=== PATIENT | female | born 1980 | race Caucasian/White ===

== ENCOUNTER 2021-10-28 12:20 | Outpatient (REF) | payer OTHER, SELFPAY ==
[2021-10-28 14:02] LABS: MANUAL DIFF FLAG NO
[2021-10-28 14:10] LABS: Basophils Percent Auto 0.4 % (0-2); Eosinophils Percent Auto 0.5 % (0-4); Hematocrit 40.5 % (37.0-47.0); Hemoglobin 13.1 g/dl (12.0-16.0); Imm Gran Abs Auto 0.02 X10*3/uL (0.00-0.03); Imm Gran Pct Auto 0.3 % (0.0-0.4); Lymphocytes Absolute Auto 2.4 X10*3/uL (1.2-4.9); Lymphocytes Percent Auto 31.9 % (20-40); Mean Corpuscular HGB Conc 32.3 g/dl (31.0-35.0); Mean Corpuscular Hemoglobin 31.4 pg (27.0-33.0); Mean Corpuscular Volume 97.1 fL (80.0-98.0); Mean Platelet Volume 9.6 fL (9.4-12.3); Monocytes Absolute Auto 0.5 X10*3/uL (0.1-1.2); Monocytes Percent Auto 6.6 % (2-11); Neutrophils Absolute Auto 4.5 x10*3/uL (2.0-8.3); Neutrophils Percent Auto 60.3 % (45-73); Platelet Count 266 X10*3/uL (160-400); Red Blood Count 4.17 X10*6/uL (4.20-5.50); Red Cell Distribution Width 13.2 % (11.0-16.0); White Blood Count 7.4 X10*3/uL (4.8-10.8)
[2021-10-28 14:24] LABS: Alanine Aminotransferase 13 U/L (0-31); Anion Gap 11 (12-20); Aspartate Amino Transferase 17 U/L (5-31); Blood Urea Nitrogen 11 mg/dL (9-16); Calcium 9.6 mg/dL (8.4-10.2); Carbon Dioxide 26 mmol/L (22-29); Chloride 107 mmol/L (96-108); Cholesterol 175 mg/dL; Estimated Glomerular Filt Rate > 60; Glucose Fasting 96 mg/dL (60-99); HDL Cholesterol 67 mg/dL; LDL Cholesterol Calculated 97 mg/dl; Sodium 140 mmol/L (135-145); Triglycerides 59 mg/dL
[2021-10-28 14:38] LABS: TSH reflex Free T4 1.03 uIU/mL (0.32-4.0); Vitamin D 25-OH Total 28.6 ng/mL (>30)
== END 2021-10-28 12:21 | disposition home or self-care (01) ==
LOC: HO.HMGCLDS 12:20
PROVIDERS: PCP Internal Medicine; Visit Provider Internal Medicine
DX: Z00.01 Encounter for general adult medical examination with abnormal findings (principal)
CPT/HCPCS: 36415; 80048; 80061; 82306; 84443; 84450; 84460; 85025

== ENCOUNTER 2021-12-20 10:31 | Outpatient (REF) | payer OTHER, SELFPAY ==
--- NOTE | ~2021-12-20 | MM_ITS ---
EXAMINATION: MM SCREENING DIGITAL BREAST TOMOSYNTHESIS, BILATERAL CLINICAL INFORMATION: Screening. Asymptomatic. Prior pzh-op-qfqcg mammography currently unavailable. Family history breast cancer, mother. The lifetime risk of breast cancer based on the Tyrer-Cuzick Model is 26%. COMPARISON: None. TECHNIQUE: Digital mammography is performed in craniocaudal and mediolateral oblique views along with computer-aided detection (CAD). Digital breast tomosynthesis is performed in implant-displaced craniocaudal and implant-displaced mediolateral oblique views along with computer-aided detection (CAD). Synthesized 2D images are generated from the tomosynthesis. FINDINGS: The breasts are heterogeneously dense, which may obscure small masses (ACR BI-RADS breast composition Category c). There are bilateral implants. Implant contours are smooth. There is fine fibronodular parenchymal pattern. No significant mass or architectural abnormality. No abnormal calcifications. The axilla and skin contours are unremarkable. MM/MM tomosynthesis screen imp BI IMPRESSION: No mammographic evidence of malignancy. ASSESSMENT: BI-RADS 1: Negative RECOMMENDATION: 1. Routine annual mammography screening. 2. Radiology department staff will attempt to retrieve prior dkb-nx-rcpah mammography to allow for comparison in an addendum report. 3. The lifetime risk of breast cancer based on the Tyrer-Cuzick Model is 26%. Additional annual adjunct screening with breast MRI may be of benefit in women with a risk score of 20% or greater. This patient's information was entered into a reminder system with a target due date for their next mammogram.
== END 2021-12-20 10:32 | disposition home or self-care (01) ==
LOC: HO.MAMMO 10:31
PROVIDERS: Visit Provider Internal Medicine
DX: Z12.31 Encounter for screening mammogram for malignant neoplasm of breast (principal)
CPT/HCPCS: 77063; 77067

== ENCOUNTER 2022-02-11 08:12 | Outpatient (REF) | payer OTHER, SELFPAY ==
[2022-02-11 10:10] LABS: Hematocrit 39.8 % (37.0-47.0); Hemoglobin 13.3 g/dl (12.0-16.0); Mean Corpuscular HGB Conc 33.4 g/dl (31.0-35.0); Mean Corpuscular Volume 95.7 fL (80.0-98.0); Mean Platelet Volume 9.1 fL (9.4-12.3); Platelet Count 232 X10*3/uL (160-400); Red Blood Count 4.16 X10*6/uL (4.20-5.50); Red Cell Distribution Width 12.5 % (11.0-16.0); White Blood Count 10.7 X10*3/uL (4.8-10.8)
[2022-02-11 10:57] LABS: TSH reflex Free T4 0.77 uIU/mL (0.32-4.0)
[2022-02-11 14:32] LABS: CT PCR NOT DETECTED (Not Detect.); NG PCR NOT DETECTED (Not Detect.)
[2022-02-12 11:01] LABS: BV Int Neg Control Negative (Negative); BV Int Pos Control Positive (Positive)
[2022-02-14 13:02] LABS: HPV mRNA E6/E7 rflx Not Detected (Not Detected)
== END 2022-02-11 08:13 | disposition home or self-care (01) ==
LOC: HO.LAB 08:12
PROVIDERS: PCP Internal Medicine; Visit Provider Advanced Practice Midwife
DX: Z01.411 Encounter for gynecological examination (general) (routine) with abnormal findings (principal); Z11.51 Encounter for screening for human papillomavirus (HPV); N93.9 Abnormal uterine and vaginal bleeding, unspecified; Z20.2 Contact with and (suspected) exposure to infections with a predominantly sexual mode of transmission
CPT/HCPCS: 36415; 84443; 85027; 87480; 87491; 87510; 87591; 87624; 87660; 88142

== ENCOUNTER 2022-10-21 12:23 | Outpatient (REF) | payer OTHER, SELFPAY ==
--- NOTE | ~2022-10-21 | XR_ITS ---
EXAMINATION: XR LUMBOSACRAL SPINE CLINICAL INFORMATION: Reason for Exam VITAMIN D LEVEL. EXTENSIVE BACK HISTORY COMPARISON: None TECHNIQUE: 5 views of the lumbar spine FINDINGS: Transitional anatomy with a broad-based left L5 transverse process pseudoarticulating with the sacrum. Status post L3 through L5 posterior spinal fusion with interbody disc spacers. No evidence of hardware fracture or complication. Vertebral body heights are maintained. Alignment is maintained. No fusion hardware and overlying bowel gas somewhat limits evaluation for pars defects, though none is appreciated with certainty. Mild degenerative disc disease at L5-S1 with loss of disc space height. Paravertebral soft tissues are unremarkable. XR/XR lumbar spine 4V min IMPRESSION: * Status post L3 through L5 posterior spinal fusion with interbody disc spacers. No evidence of hardware fracture or complication. * Mild spondylosis of the lumbar spine, as above detailed. * Transitional lumbosacral anatomy with a broad-based left L5 transverse process pseudoarticulating with the sacrum, which can be a source of pain.
[2022-10-21 13:55] LABS: MANUAL DIFF FLAG NO
[2022-10-21 14:02] LABS: Basophils Percent Auto 0.8 % (0-2); Eosinophils Absolute Auto 0.1 X10*3/uL (0.0-0.4); Eosinophils Percent Auto 2.3 % (0-4); Hematocrit 38.9 % (37.0-47.0); Hemoglobin 12.4 g/dl (12.0-16.0); Imm Gran Abs Auto 0.01 X10*3/uL (0.00-0.03); Imm Gran Pct Auto 0.2 % (0.0-0.4); Lymphocytes Percent Auto 42.7 % (20-40); Mean Corpuscular HGB Conc 31.9 g/dl (31.0-35.0); Mean Corpuscular Hemoglobin 30.7 pg (27.0-33.0); Mean Corpuscular Volume 96.3 fL (80.0-98.0); Mean Platelet Volume 9.1 fL (9.4-12.3); Monocytes Absolute Auto 0.3 X10*3/uL (0.1-1.2); Monocytes Percent Auto 6.5 % (2-11); Neutrophils Absolute Auto 2.3 x10*3/uL (2.0-8.3); Neutrophils Percent Auto 47.5 % (45-73); Platelet Count 248 X10*3/uL (160-400); Red Blood Count 4.04 X10*6/uL (4.20-5.50); Red Cell Distribution Width 12.9 % (11.0-16.0); White Blood Count 4.8 X10*3/uL (4.8-10.8)
[2022-10-21 14:37] LABS: Erythrocyte Sedimentation Rate 13 MM/HR (0-20)
[2022-10-21 15:39] LABS: Free T4 (Free Thyroxine) 1.23 ng/dL (0.71-1.85); Thyroid Stimulating Hormone 1.26 uIU/mL (0.32-4.0); Vitamin D 25-OH Total 22.2 ng/mL (>30)
[2022-10-21 15:43] LABS: Alanine Aminotransferase 15 U/L (0-31); Albumin Level 4.4 g/dL (3.5-5.0); Alkaline Phosphatase 51 U/L (39-117); Anion Gap 14 (12-20); Aspartate Amino Transferase 19 U/L (5-31); Bilirubin Total 0.6 mg/dL (0.0-1.0); Blood Urea Nitrogen 15 mg/dL (9-16); C Reactive Protein < 0.04 mg/dL (< or = 0.50); Calcium 9.2 mg/dL (8.4-10.2); Carbon Dioxide 24 mmol/L (22-29); Chloride 107 mmol/L (96-108); Cholesterol 170 mg/dL; Estimated Glomerular Filt Rate > 60; Glucose Fasting 97 mg/dL (60-99); HDL Cholesterol 61 mg/dL; LDL Cholesterol Calculated 97 mg/dl; Potassium 3.8 mmol/L (3.3-5.1); Sodium 141 mmol/L (135-145); Total Protein 7.1 g/dL (6.5-8.0); Triglycerides 62 mg/dL
[2022-10-22 11:13] LABS: Folate 14.2 ng/mL (> or = 4.0); Vitamin B12 381 pg/mL (200-900)
== END 2022-10-21 12:24 | disposition home or self-care (01) ==
LOC: HO.HMGCX 12:23
PROVIDERS: PCP Internal Medicine; Visit Provider Internal Medicine
DX: D64.9 Anemia, unspecified (principal); R53.83 Other fatigue; M54.9 Dorsalgia, unspecified
CPT/HCPCS: 36415; 72110; 80053; 80061; 82306; 82607; 82746; 84439; 84443; 85025; 85652; 86140

== ENCOUNTER 2023-03-18 15:30 | Outpatient (REF) | payer OTHER, SELFPAY ==
--- NOTE | ~2023-03-18 | XR_ITS ---
EXAMINATION: XR LUMBOSACRAL SPINE CLINICAL INFORMATION: Low back pain. COMPARISON: 10/21/2022 TECHNIQUE: Three views of the lumbosacral spine. FINDINGS: There are 5 nonrib-bearing lumbar vertebra. Patient status post pedicle screw and lisa fixation. Hardware appears intact. Disc spaces are seen at the L3-L4 and L4-L5 disc space levels. There is some mild narrowing of the L5-S1 disc space. No spondylolisthesis. No acute fracture identified. Sacroiliac joints appear unremarkable. XR/XR lumbar spine 2-3V IMPRESSION: Stable appearance status post previous surgery L3 through L5 without evidence of hardware failure.
== END 2023-03-18 15:31 | disposition home or self-care (01) ==
LOC: HO.HMGCX 15:30
PROVIDERS: PCP Internal Medicine; Visit Provider Internal Medicine
DX: M54.9 Dorsalgia, unspecified (principal)
CPT/HCPCS: 72100

== ENCOUNTER 2023-04-09 07:59 | Outpatient (REF) | payer OTHER, SELFPAY ==
--- NOTE | ~2023-04-09 | MM_ITS ---
EXAMINATION: MM SCREENING DIGITAL BREAST TOMOSYNTHESIS, BILATERAL CLINICAL INFORMATION: Screening. Asymptomatic. The lifetime risk of breast cancer based on the Tyrer-Cuzick Model is 25.8%. COMPARISON: Mammography: This study is compared with the prior mammogram from 2021. There are no other mammograms for comparison. TECHNIQUE: Digital mammography is performed in craniocaudal and mediolateral oblique views along with computer-aided detection (CAD). Digital breast tomosynthesis is performed in implant-displaced craniocaudal and implant-displaced mediolateral oblique views along with computer-aided detection (CAD). Synthesized 2D images are generated from the tomosynthesis. FINDINGS: The breasts are heterogeneously dense, which may obscure small masses (ACR BI-RADS breast composition Category c). There are bilateral, mammographically intact, subpectoral, saline breast implants. There are no significant masses, abnormal calcifications, or other abnormalities. MM/MM tomosynthesis screen imp BI IMPRESSION: There are no significant changes from prior study. ASSESSMENT: BI-RADS BI-RADS 1 - Negative RECOMMENDATION: Routine annual mammography screening. 1 year F/U This patient's information was entered into a reminder system with a target due date for their next mammogram.
== END 2023-04-09 08:00 | disposition home or self-care (01) ==
LOC: HO.MAMMO 07:59
PROVIDERS: PCP Internal Medicine; Visit Provider Internal Medicine
DX: Z12.31 Encounter for screening mammogram for malignant neoplasm of breast (principal)
CPT/HCPCS: 77063; 77067

== ENCOUNTER → 2023-04-09 08:00 | Outpatient (BNV) | payer OTHER, SELFPAY | PROVIDERS: PCP Internal Medicine; Visit Provider Radiology Diagnostic Radiology | DX: Z12.31 Encounter for screening mammogram for malignant neoplasm of breast (principal) | CPT/HCPCS: 77063; 77067 ==

== ENCOUNTER 2023-05-13 11:18 | Outpatient (REF) | payer OTHER, SELFPAY ==
--- NOTE | ~2023-05-13 | MR_ITS ---
EXAMINATION: MR LUMBAR SPINE WITHOUT AND WITH CONTRAST CLINICAL INFORMATION: 42-year-old with history of previous lumbar fusion, with post laminectomy syndrome. Low back pain of 2 months duration, right side. Left sciatica. COMPARISON: 03/18/2023 x-rays. TECHNIQUE: MRI of the lumbar spine was obtained using routine sequences with and without contrast. Intravenous contrast: Gadavist 5.5 mL. FINDINGS: Coronal Alignment: Trace lower lumbar levocurvature, stable in appearance. Sagittal Alignment: Moderate hyperlordosis centered at L3-L4. No spondylolisthesis or significant retrolisthesis. Lumbosacral Junction: Transitional lumbosacral anatomy with lowest lumbar-like segment labeled as L5. Vertebral Bodies: Vertebral body heights are well-maintained. Disc Spaces and Endplates: Transitional intervertebral disc at L5-S1. Status post interbody fusions at L3-L4 and L4-L5 with hardware artifact in the intervertebral disc spaces at these levels. Posterior instrumented hardware fusion construct in place spanning the L5 levels bilaterally with metallic hardware artifact. Minimal disc desiccation at L2-L3 without significant disc space height loss. Spinal Canal: No abnormal developmental findings. Bone Marrow: Mixed type I and type II degenerative marrow signal changes seen along the endplates at L4-L5 with minor type II marrow signal changes along the endplates at L3-L4. No suspicious marrow replacing process or other bone marrow edema. Conus Medullaris: Terminates at L1-L2. Morphology and signal is normal. No abnormal enhancement. Intradural Nerve Roots: Within normal limits. No abnormal intradural enhancement. L5-S1: Transitional level showing posterolateral disc osteophyte complex, right more than left with a small right posterolateral annular fissure. L5 pedicle screw artifact partially obscures the neural foramina, right more than left. Suspect moderate right-sided neural foraminal stenosis with disc osteophyte complex contacting the exiting right L5 nerve root sleeve. No canal stenosis. L4-L5: Chronic postlaminectomy changes noted on the right for canal decompression with no evidence for recurrent canal stenosis. Partially obscured facet joints and posterior elements bilaterally related to metallic artifact. Some degree of facet hypertrophic changes seen bilaterally. Posterolateral disc osteophyte complex noted bilaterally with minor bony neural foraminal narrowing bilaterally. L3-L4: Chronic postlaminectomy changes noted consistent with canal decompression without recurrent canal stenosis. No significant neural foraminal stenosis. L2-L3: Central to left paracentral disc herniation noted with indentation of the ventral thecal sac centrally and minimally asymmetric to the left with slight narrowing of the left subarticular zone without definite neural impingement. There is mild associated central spinal canal narrowing. There is [id number]-fs-[id number] facet arthropathy, right more than left, partially obscured by L3 pedicle screw artifact. No significant neural foraminal stenosis. L1-L2: Normal annular contour. No facet arthrosis, canal or neuroforaminal stenosis. T12-L1: Normal annular contour. No facet arthrosis, canal or neuroforaminal stenosis. Paravertebral and Included Extraspinal Soft Tissues: There are some edematous changes in the soft tissues posterior to the L5-S1 level which may reflect denervation atrophy of the adjacent paraspinal musculature. Otherwise, the paravertebral soft tissues appear grossly unremarkable. There is a subcentimeter probable cortical cyst in the lateral cortex of the mid to upper pole of the left kidney which is not visualized on the associated axial T2-weighted images. If clinically warranted, this can be confirmed sonographically. Note also that on the sagittal images, there is a partially imaged cystic structure corresponding to the region of the left adnexa measuring at least 3 cm. Statistically, this is most likely a physiologic left ovarian cyst but is not completely visualized. MR/MR lumbar spine wo/w con IMPRESSION: 1. Status post anterior and posterior fusion at the L3-L4 and L4-L5 levels with postoperative changes as discussed above with no evidence for recurrent canal stenosis and no significant neural foraminal stenosis. 2. Discogenic degenerative changes at L2-L3 with a central to left paracentral disc herniation with mild narrowing of the left subarticular zone and mild central canal stenosis without neural impingement and [id number] facet arthropathy at this level without significant neural foraminal stenosis. 3. Posterolateral disc osteophyte complex at L5-S1, right more than left, with a tiny right posterolateral annular fissure, with moderate right-sided neural foraminal stenosis, with disc osteophyte complex contacting the exiting right L5 nerve root sleeve. 4. Probable physiologic left ovarian cyst, which is only partially imaged and a probable small simple cyst in the lateral cortex left kidney also incompletely imaged. If clinically warranted, these can be further assessed sonographically.
[2023-05-13] MEDS: gadobutroL 7.5 ML VIAL IVPUSH (12:09)
== END 2023-05-13 11:19 | disposition home or self-care (01) ==
LOC: HO.MRI 11:18
PROVIDERS: PCP Internal Medicine; Visit Provider Internal Medicine
DX: M54.50 Low back pain, unspecified (principal); M43.26 Fusion of spine, lumbar region
CPT/HCPCS: 72158; A9585

== ENCOUNTER 2023-06-23 08:28 | Outpatient (AMB) | payer OTHER, SELFPAY ==
[2023-06-23 08:34] VITALS: BP 90/56; BMI 22.1
--- NOTE | 2023-06-23 08:34 | MHC.OFFVIS ---
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 No complaints. Recent back MRI showed partial imaging of an ovarian cyst Last Pap/HPV was negative in 03/04 Last screen Mammogram was BI-RADS 1 in 04/04, [facility] lifetime breast cancer risk = 25.8% [facility] Medical History Lumbar radicular syndrome Hx of supraventricular tachycardia ADD (attention deficit disorder) Surgical History Hx of section Hx of breast augmentation History of lumbosacral spine surgery History of cardiac radiofrequency ablation (RFA) Family History Maternal Aunt Mental health disorder Family/Other Mental health disorder Paternal Grandfather Goiter Paternal Aunt Breast cancer Father Non-Hodgkin lymphoma Hodgkin lymphoma Mother Breast cancer Sister Cervical cancer Social History Housing: House Alcohol intake: current Alcohol intake frequency: holidays/special occasions only Patient Tobacco Use Status: Current everyday Tobacco user Cigarettes Per Day: 5 service: No Current occupational status: employed 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[employer] Sexually active: No Female Reproductive History Menstrual Date of last menstrual period: 05/23/23 control method: none Total pregnancies: 4 Full term: 1 Number of Living Children: 1 Ab induced: 3 Date of last pap smear: 02/11/22 (neg pap and hpv) Date of Mammogram: 04/09/23 (Birad 1) Review of Systems Const All systems reviewed & are unremarkable except as noted in HPI and below Card Reports as per HPI Resp Reports as per HPI GI Reports as per HPI and Reports no additional complaints Reports as per HPI Physical Exam Vital Signs: BMI result Body Mass Index 22.1 Const General: cooperative, healthy appearing and comfortable Chest Chest palpation & inspection: normal inspection of the chest and normal palpation of entire chest wall Breast/axilla inspection: normal inspection of the breasts and normal inspection of the axillae Breast/axilla palpation: normal palpation of the breasts, normal palpation of the axillae and no axillary lymphadenopathy Resp Effort & Inspection: normal respiratory effort Auscultation: clear to auscultation bilaterally Percussion: percussion normal Cardio Palpation: normal PMI Rate: regular rate Rhythm: regular rhythm Heart sounds: no murmurs and no rubs Peripheral pulses: Peripheral pulses 2+ throughout GI Inspection: Yes normal to inspection Palpation (GI): Soft to palpation, nontender, no guarding, not rigid and No hepatosplenomegaly present Percussion: Yes normal to percussion Auscultation: normal bowel sounds Rectal Exam - Female: deferred General: Yes bladder normal to palpation External Female Exam: No lesion Speculum Exam - Vagina: normal appearance of the vagina, normal palpation, normal vaginal discharge and not erythematous Speculum Exam - Cervix: normal appearance of the cervix and normal palpation Bimanual exam- vagina & uterus: normal bimanual exam, normal palpation, uterine size normal, bladder normal to palpation, consistency normal and normal palpation Bimanual Exam- Adnexa, other: normal adnexae, no masses and no tenderness Assessment & Plan Assessment & Plan (1) Encounter for well woman exam: Code(s): Z01.419 - Encounter for gynecological examination (general) (routine) without abnormal findings Plan: Cotesting not indicated this. Instructions given the patient to schedule her next screening Mammogram in 04/01. Counseled the patient about the recommended dietary allowance of 1000 mg of Calcium & 600 IU of vitamin D. The patient was instructed to perform monthly self-breast exams and to schedule an annual exam in a year; All questions answered and the patient verbalized understanding. Instructed the patient to schedule annual exam in a year (2) Increased risk of breast cancer: Code(s): Z91.89 - Other specified personal risk factors, not elsewhere classified Plan: Discussed with the patient her increased risk for Breast ca. The lifetime risk of breast cancer based on the Tyrer-Cuzick Model is 25.8 % Recommended Intensification of breast Cancer screening with annual MRI breast in addition to annual mammogram and MRI alternating every 6 months. Mammogram done recently , Breast MRI ordered Will refer to Dr Valentin for possible Genetic Ca counseling and possible testing, in addition to counseling regarding Chemoprevention strategies All questions answered, the patient verbalized understanding and agreed with the plan (3) Ovarian cyst: Code(s): N83.209 - Unspecified ovarian cyst, unspecified side Plan: Will order pelvic ultrasound, instructions given the patient to schedule a follow-up ultrasound appointment Orders: Orders MR breast BI wo/w con Today Z80.3 - Family history of malignant neoplasm of breast US pelvic and transvaginal Today N83.209 - Unspecified ovarian cyst, unspecified side Referrals General Surgery Referral Z91.89 - Other specified personal risk factors, not elsewhere classified Coding Level of Care Code Est Pt Prev Care 40-64y(32077) Diagnoses Encounter for well woman exam Z01.419 Increased risk of breast cancer Z91.89 Ovarian cyst N83.209
== END 2023-06-23 08:59 | disposition home or self-care (01) ==
PROVIDERS: PCP Internal Medicine; Visit Provider Obstetrics & Gynecology
DX: Z01.419 Encounter for gynecological examination (general) (routine) without abnormal findings (principal); Z91.89 Other specified personal risk factors, not elsewhere classified; N83.209 Unspecified ovarian cyst, unspecified side
CPT/HCPCS: 99396

== ENCOUNTER → 2023-06-23 08:28 | Outpatient (BNVA) | payer OTHER, SELFPAY | PROVIDERS: PCP Internal Medicine; Visit Provider Obstetrics & Gynecology | DX: Z01.419 Encounter for gynecological examination (general) (routine) without abnormal findings (principal); N83.209 Unspecified ovarian cyst, unspecified side; Z91.89 Other specified personal risk factors, not elsewhere classified; Z80.3 Family history of malignant neoplasm of breast | CPT/HCPCS: 99396 ==

== ENCOUNTER 2023-07-21 11:00 | Outpatient (REF) | payer OTHER, SELFPAY ==
--- NOTE | ~2023-07-21 | US_ITS ---
EXAMINATION: US PELVIS CLINICAL INFORMATION: Left ovarian cyst. COMPARISON: MRI lumbar spine 05/13/2023. TECHNIQUE: Ultrasound of the pelvis is performed using both transabdominal and transvaginal transducers along with Doppler. Transvaginal imaging is performed due to inadequate visualization transabdominally. FINDINGS: Uterus: The uterus is retroverted and measures 8.2 x 4.8 x 5.4 cm. The double wall endometrial thickness is 3 mm. The uterus is smooth in contour and has normal myometrial echogenicity. No visible fibroid. Prominent parametrial vessels are seen. Adnexa: Both ovaries are visualized. There is normal color flow to the adnexa. There is no ovarian torsion. There is no pelvic ascites or fluid collection. Right ovary measures 3.9 x 3.5 x 3.2 cm. Volume 23 mL. Physiologic simple cysts measuring 2.6 and 1.7 cm. No follow-up imaging is recommended. Left ovary measures 3.9 x 2.0 x 1.3 cm. Volume 5 mL. US/US pelvic and transvaginal IMPRESSION: The left ovary appears normal. The cyst seen on recent MRI was likely physiologic and has resolved. Prominent parametrial vessels may reflect ovarian vein reflux.
== END 2023-07-21 11:01 | disposition home or self-care (01) ==
LOC: HO.US 11:00
PROVIDERS: PCP Internal Medicine; Visit Provider Advanced Practice Midwife
DX: N83.209 Unspecified ovarian cyst, unspecified side (principal)
CPT/HCPCS: 76830; 76856

== ENCOUNTER 2023-09-16 08:55 | Outpatient (AMB) | payer OTHER, SELFPAY ==
--- NOTE | 2023-09-16 09:00 | MHC.OFFVIS ---
Intake Vital Signs 09/16/23 09:11 Height 5 ft 6 in Weight 135 lb 12.876 oz BMI 21.9 BP 100/70 Blood Pressure Location Lt brachial Intake Visit Reasons: High risk, breast consult, genetic testing Intake Note: Patient is seen in office for high risk breast cancer consult & possible genetic testing. 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 Her most recent mammogram of 7 05/02/2023 revealed no significant changes from her prior mammogram however her Kathy Gibson remaining lifetime risk of breast cancer was calculated at 25.8 % placing her at high risk for breast cancer. She denies any previous history of breast problems but has had bilateral breast implants approximately 20 years ago (saline implants). She has had no significant breast symptoms following the surgery. Her family history is significant for her mother developing breast cancer in her 40s. In addition a paternal aunt developed breast cancer was found to be BRCA positive. No other family members have tested positive for BRCA. She is with 3 ABs. She is scheduled for an MRI on 10/06/2023 but is concerned about positioning during the MRI due to previous lumbar back surgery. She denies any current breast symptoms. She presents today for genetic testing. [facility] Medical History Lumbar radicular syndrome Hx of supraventricular tachycardia ADD (attention deficit disorder) Surgical History Hx of section Hx of breast augmentation History of lumbosacral spine surgery History of cardiac radiofrequency ablation (RFA) Family History Maternal Aunt Mental health disorder Family/Other Mental health disorder Paternal Grandfather Goiter Paternal Aunt Breast cancer Father Non-Hodgkin lymphoma Hodgkin lymphoma Mother Breast cancer Sister Cervical cancer Social History Housing: House Alcohol intake: current Alcohol intake frequency: holidays/special occasions only Patient Tobacco Use Status: Current everyday Tobacco user Cigarettes Per Day: 5 service: No Current occupational status: employed 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 Reproductive History Menstrual 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: 17 Date of last menstrual period: 09/02/23 Total pregnancies: 3 Number of Living Children: 1 Ab spontaneous: 2 Review of Systems Const All systems reviewed & are unremarkable except as noted in HPI and below Physical Exam Const General: cooperative and no acute distress Nutritional Appearance: well nourished Orientation/consciousness: patient oriented x3 Limitations: no limitations HEENT Head: Yes normocephalic and Yes atraumatic Ears: hearing grossly normal bilaterally Chest Other: Bilateral breast implants with no capsule capsule fibrosis or calcification palpable Left breast: No skin change, no nipple retraction, no nipple discharge, no palpable mass, no enlarged lymph nodes. Right breast: No skin change, no nipple retraction, no nipple discharge, no palpable mass, no enlarged lymph nodes Resp Effort & Inspection: normal respiratory effort, no audible wheezes, no cough and no respiratory distress Cardio Jugular venous distension: no JVD GI Inspection: Yes normal to inspection Skin Other: Warm, dry, no rash Neuro General: patient oriented x3 Extrem General: Yes no clubbing, cyanosis or edema Assessment & Plan Assessment & Plan (1) Increased risk of breast cancer: Code(s): Z91.89 - Other specified personal risk factors, not elsewhere classified (2) Family history of breast cancer: Code(s): Z80.3 - Family history of malignant neoplasm of breast (3) Family history of BRCA gene mutation: Code(s): Z84.81 - Family history of carrier of genetic disease Plan 42-year-old female patient presenting with a strong family history of breast cancer as well as a family history of BRCA positive gene mutations and a paternal aunt. She has no prior history of breast problems but has undergone previous bilateral breast implants. She denies any current breast symptoms. Examination today reveals no suspicious findings in either breast. Her Tyrer-Cuzick remaining lifetime risk of breast cancer was calculated at 25.8 % placing her at high risk for breast cancer. A breast MRI has been ordered by Dr. Jara for later this month. She will undergo genetic testing today and understands the risks and benefits. She will follow-up in 6 weeks to review the results. She is welcome to call sooner for any questions or concerns. Coding Level of Care Code New Pt Level 4 (73582) Diagnoses Increased risk of breast cancer Z91.89 Family history of breast cancer Z80.3 Family history of BRCA gene mutation Z84.81
[2023-09-16 09:11] VITALS: BP 100/70; BMI 21.9
== END 2023-09-16 09:27 | disposition home or self-care (01) ==
PROVIDERS: PCP Internal Medicine; Visit Provider Surgery
DX: Z80.3 Family history of malignant neoplasm of breast (principal); Z84.81 Family history of carrier of genetic disease; Z91.89 Other specified personal risk factors, not elsewhere classified
CPT/HCPCS: 99204

== ENCOUNTER → 2023-09-16 08:55 | Outpatient (BNVA) | payer OTHER, SELFPAY | PROVIDERS: PCP Internal Medicine; Visit Provider Surgery | DX: Z91.89 Other specified personal risk factors, not elsewhere classified (principal); Z80.3 Family history of malignant neoplasm of breast; Z84.81 Family history of carrier of genetic disease | CPT/HCPCS: 99202 ==

== ENCOUNTER 2023-12-23 11:37 | Outpatient (REF) | payer OTHER, SELFPAY ==
[2023-12-23 13:09] LABS: MANUAL DIFF FLAG NO
[2023-12-23 13:27] LABS: Basophils Percent Auto 0.5 % (0-2); Eosinophils Absolute Auto 0.1 X10*3/uL (0.0-0.4); Eosinophils Percent Auto 2.1 % (0-4); Hematocrit 37.6 % (37.0-47.0); Hemoglobin 12.6 g/dl (12.0-16.0); Imm Gran Abs Auto 0.01 X10*3/uL (0.00-0.03); Imm Gran Pct Auto 0.2 % (0.0-0.4); Lymphocytes Absolute Auto 2.2 X10*3/uL (1.2-4.9); Lymphocytes Percent Auto 36.5 % (20-40); Mean Corpuscular HGB Conc 33.5 g/dl (31.0-35.0); Mean Corpuscular Hemoglobin 32.1 pg (27.0-33.0); Mean Corpuscular Volume 95.7 fL (80.0-98.0); Mean Platelet Volume 9.8 fL (9.4-12.3); Monocytes Absolute Auto 0.4 X10*3/uL (0.1-1.2); Monocytes Percent Auto 5.9 % (2-11); Neutrophils Absolute Auto 3.3 x10*3/uL (2.0-8.3); Neutrophils Percent Auto 54.8 % (45-73); Platelet Count 216 X10*3/uL (160-400); Red Blood Count 3.93 X10*6/uL (4.20-5.50); Red Cell Distribution Width 12.9 % (11.0-16.0); White Blood Count 6.1 X10*3/uL (4.8-10.8)
[2023-12-23 14:03] LABS: Alanine Aminotransferase 15 U/L (0-31); Albumin Level 4.4 g/dL (3.5-5.0); Alkaline Phosphatase 47 U/L (39-117); Anion Gap 11 (12-20); Aspartate Amino Transferase 22 U/L (5-31); Bilirubin Total 0.6 mg/dL (0.0-1.0); Blood Urea Nitrogen 11 mg/dL (9-16); C Reactive Protein < 0.04 mg/dL (< or = 0.50); Calcium 9.2 mg/dL (8.4-10.2); Carbon Dioxide 24 mmol/L (22-29); Chloride 108 mmol/L (96-108); Estimated Glomerular Filt Rate > 60; Free T4 (Free Thyroxine) 1.05 ng/dL (0.71-1.85); Glucose Fasting 84 mg/dL (60-99); Potassium 3.8 mmol/L (3.3-5.1); Sodium 139 mmol/L (135-145); Thyroid Stimulating Hormone 0.74 uIU/mL (0.32-4.0); Total Protein 7.6 g/dL (6.5-8.0); Vitamin D 25-OH Total 45.3 ng/mL (>30)
[2023-12-23 14:05] LABS: Vitamin B12 352 pg/mL (200-900)
[2023-12-23 14:16] LABS: Erythrocyte Sedimentation Rate 7 MM/HR (0-20)
== END 2023-12-23 11:38 | disposition home or self-care (01) ==
LOC: HO.HMGCLDS 11:37
PROVIDERS: PCP Internal Medicine; Visit Provider Internal Medicine
DX: R53.83 Other fatigue (principal)
CPT/HCPCS: 36415; 80053; 82306; 82607; 84439; 84443; 85025; 85652; 86140

== ENCOUNTER 2024-06-28 08:29 | Outpatient (AMB) | payer OTHER, SELFPAY ==
--- NOTE | 2024-06-28 08:31 | MHC.OFFVIS ---
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 In addition, the patient is complaining of markedly depressed mood, feelings of hopelessness, anxiety, tension, affective lability, Persistent and marked anger / irritability / increased interpersonal conflicts, decreased interest in usual activities, lack of energy, insomnia, feeling overwhelmed or out of control. all those symptoms are cyclic and disappear after menses. Those disturbances are affecting her usual social activities and relationships. Last Pap/HPV was negative in 03/04 Last Mammogram was BI-RADS 1 in 04/04 [facility] Medical History Lumbar radicular syndrome Hx of supraventricular tachycardia ADD (attention deficit disorder) Surgical History Hx of section Hx of breast augmentation History of lumbosacral spine surgery History of cardiac radiofrequency ablation (RFA) Family History Maternal Aunt Mental health disorder Family/Other Mental health disorder Paternal Grandfather Goiter Paternal Aunt Breast cancer Father Non-Hodgkin lymphoma Hodgkin lymphoma Mother Breast cancer Sister Cervical cancer Social History Housing: House Alcohol intake: current Alcohol intake frequency: holidays/special occasions only Patient Tobacco Use Status: Current everyday Tobacco user Cigarettes Per Day: 5 service: No Current occupational status: employed 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 Reproductive History Menstrual 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: 17 Date of last pap smear: 02/12/22 Date of Mammogram: 04/09/23 Review of Systems Const All systems reviewed & are unremarkable except as noted in HPI and below Card Reports as per HPI Resp Reports as per HPI GI Reports as per HPI and Reports no additional complaints Reports as per HPI Physical Exam Vital Signs: Last Vital Signs BP 118/62 06/28/24 08:39 BMI result Body Mass Index 20.2 Const General: cooperative, healthy appearing and comfortable Chest Chest palpation & inspection: normal inspection of the chest and normal palpation of entire chest wall Breast/axilla inspection: normal inspection of the breasts and normal inspection of the axillae Breast/axilla palpation: normal palpation of the breasts, normal palpation of the axillae and no axillary lymphadenopathy Resp Effort & Inspection: normal respiratory effort Auscultation: clear to auscultation bilaterally Percussion: percussion normal Cardio Palpation: normal PMI Rate: regular rate Rhythm: regular rhythm Heart sounds: no murmurs and no rubs Peripheral pulses: Peripheral pulses 2+ throughout GI Inspection: Yes normal to inspection Palpation (GI): Soft to palpation, nontender, no guarding, not rigid and No hepatosplenomegaly present Percussion: Yes normal to percussion Auscultation: normal bowel sounds Rectal Exam - Female: deferred General: Yes bladder normal to palpation External Female Exam: No lesion Speculum Exam - Vagina: normal appearance of the vagina, normal palpation, normal vaginal discharge and not erythematous Speculum Exam - Cervix: normal appearance of the cervix and normal palpation Bimanual exam- vagina & uterus: normal bimanual exam, normal palpation, uterine size normal, bladder normal to palpation, consistency normal and normal palpation Bimanual Exam- Adnexa, other: normal adnexae, no masses and no tenderness Assessment & Plan Assessment & Plan (1) Encounter for well woman exam: Code(s): Z01.419 - Encounter for gynecological examination (general) (routine) without abnormal findings Category: Medical Plan: Cotesting not indicated this year. Mammogram ordered. Counseled the patient about the recommended dietary allowance of 1000 mg of Calcium & 600 IU of vitamin D. The patient was instructed to perform monthly self-breast exams and to schedule an annual exam in a year; All questions answered and the patient verbalized understanding. Instructed the patient to schedule annual exam in a year (2) Abnormal uterine bleeding (AUB): Code(s): N93.9 - Abnormal uterine and vaginal bleeding, unspecified Category: Medical Plan: GC and chlamydia taken CBC, TSH, prolactin, HCG, and pelvic ultrasound ordered. Discussed with the patient the different causes of abnormal bleeding including thyroid disorders, uterine and ovarian pathology, endometrial hyperplasia, carcinoma and other potential causes. Discussed with the patient the work up including CBC (to r/o anemia), TSH, prolactin, pelvic Ultrasound, endometrial biopsy to r/o endometrial pathology. All questions answered and the patient verbalized understanding. Instructed the patient to schedule an appointment for an endometrial biopsy in 2 weeks. (3) Bacterial vaginosis: Code(s): N76.0 - Acute vaginitis; B96.89 - Other specified bacterial agents as the cause of diseases classified elsewhere Category: Medical Plan: GC and chlamydia cultures with BV panel taken. Per CDC recommendation, will screen for STI, HepBs Ag, HIV, RPR, Hep C Ab ordered. Will treat with Flagyl 500 mg p.o. b.i.d. x 7 days, Instructions given to the patient to refrain from sexual activity or to use condoms consistently and correctly during the BV treatment regimen, not to douch, it might increase the risk for relapse, and to call if symptoms persist or recur. (4) PMDD (premenstrual dysphoric disorder): Code(s): F32.81 - Premenstrual dysphoric disorder Category: Medical Plan: Will start with fluoxetine 10 mg po qd day 14-28. Instructed the patient to call if symptoms don't improve and schedule a 3 months follow-up appointment. The patient verbalized understanding and agreed with the plan. (5) Increased risk of breast cancer: Code(s): Z91.89 - Other specified personal risk factors, not elsewhere classified Category: Medical Plan: Discussed with the patient her increased risk for Breast ca. The lifetime risk of breast cancer based on the Tyrer-Cuzick Model is 25.8% in 04/04 Recommended Intensification of breast Cancer screening with annual MRI breast in addition to annual mammogram and MRI alternating every 6 months. Mammogram ordered , Breast MRI ordered Will refer to Dr Valentin for possible Genetic Ca counseling and possible testing, in addition to counseling regarding Chemoprevention strategies All questions answered, the patient verbalized understanding and agreed with the plan Orders: Orders Bacterial Vaginosis Panel Today N89.8 - Other specified noninflammatory disorders of vagina MM tomosynthesis screen imp BI Today Z12.31 - Encounter for screening mammogram for malignant neoplasm of breast Hepatitis C Antibody Today B96.89 - Other specified bacterial agents as the cause of diseases classified elsewhere, N76.0 - Acute vaginitis Complete Blood Count no Diff Today N93.9 - Abnormal uterine and vaginal bleeding, unspecified TSH reflex Free T4 Today N93.9 - Abnormal uterine and vaginal bleeding, unspecified CT NG by PCR Today N89.8 - Other specified noninflammatory disorders of vagina HIV Ab/Ag Today B96.89 - Other specified bacterial agents as the cause of diseases classified elsewhere, N76.0 - Acute vaginitis Syphilis Screen Today B96.89 - Other specified bacterial agents as the cause of diseases classified elsewhere, N76.0 - Acute vaginitis Hepatitis B Surface Antigen Today B96.89 - Other specified bacterial agents as the cause of diseases classified elsewhere, N76.0 - Acute vaginitis HCG Quantitative Today N93.9 - Abnormal uterine and vaginal bleeding, unspecified Prolactin Today N93.9 - Abnormal uterine and vaginal bleeding, unspecified US pelvic and transvaginal Today N93.9 - Abnormal uterine and vaginal bleeding, unspecified MR breast BI wo/w con Today Z80.3 - Family history of malignant neoplasm of breast Referrals General Surgery Referral Z91.89 - Other specified personal risk factors, not elsewhere classified Medications: New metronidazole 500 mg PO BID 7 days 14 tabs 0RF fluoxetine Take 1 tablet daily from the day of symptoms onset until a few days after the start of menses 10 mg PO DAILY 3 months 60 caps 0RF Coding Level of Care Code Est Pt Level 3 (74966) Est Pt Prev Care 40-64y(30084) Diagnoses Encounter for well woman exam Z01.419 Abnormal uterine bleeding (AUB) N93.9 Bacterial vaginosis N76.0; B96.89 PMDD (premenstrual dysphoric disorder) F32.81 Increased risk of breast cancer Z91.89
[2024-06-28 08:39] VITALS: BP 118/62; BMI 20.2
== END 2024-06-28 09:05 | disposition home or self-care (01) ==
PROVIDERS: PCP Internal Medicine; Visit Provider Obstetrics & Gynecology
DX: Z01.419 Encounter for gynecological examination (general) (routine) without abnormal findings (principal); N93.9 Abnormal uterine and vaginal bleeding, unspecified; N76.0 Acute vaginitis; B96.89 Other specified bacterial agents as the cause of diseases classified elsewhere; F32.81 Premenstrual dysphoric disorder; Z91.89 Other specified personal risk factors, not elsewhere classified
CPT/HCPCS: 99213; 99396

== ENCOUNTER 2024-06-28 08:29 | Outpatient (REF) | payer OTHER, SELFPAY ==
[2024-06-29 11:32] LABS: Bacterial Vaginosis PCR NEGATIVE (Negative); Candida Group PCR NOT DETECTED (Not Detect); Candida glab krusei PCR NOT DETECTED (Not Detect); Trichomonas vaginalis PCR NOT DETECTED (Not Detect)
== END 2024-06-28 08:30 | disposition home or self-care (01) ==
LOC: HO.LNP 08:29
PROVIDERS: PCP Internal Medicine; Visit Provider Obstetrics & Gynecology
DX: Z01.419 Encounter for gynecological examination (general) (routine) without abnormal findings (principal); N89.8 Other specified noninflammatory disorders of vagina; N93.9 Abnormal uterine and vaginal bleeding, unspecified; B96.89 Other specified bacterial agents as the cause of diseases classified elsewhere; F32.81 Premenstrual dysphoric disorder; Z91.89 Other specified personal risk factors, not elsewhere classified
CPT/HCPCS: 0352U; 99212; 99396

== ENCOUNTER 2024-06-28 09:07 | Outpatient (REF) | payer SELFPAY ==
[2024-06-28 09:55] LABS: Hemoglobin 12.3 g/dl (12.0-16.0); Mean Corpuscular HGB Conc 33.2 g/dl (31.0-35.0); Mean Corpuscular Hemoglobin 32.1 pg (27.0-33.0); Mean Corpuscular Volume 96.6 fL (80.0-98.0); Mean Platelet Volume 9.1 fL (9.4-12.3); Platelet Count 228 X10*3/uL (160-400); Red Blood Count 3.83 X10*6/uL (4.20-5.50); Red Cell Distribution Width 13.2 % (11.0-16.0); White Blood Count 7.4 X10*3/uL (4.8-10.8)
[2024-06-28 10:36] LABS: Syphilis Screen Nonreactive (Nonreactive)
[2024-06-28 10:37] LABS: HIV AB/AG Nonreactive (Nonreactive); HIV Num 1 0.04 S/CO (0.00-0.99); Hepatitis B Surface Antigen Negative (Negative); ~HepC Num1 0.11 S/CO (0.00-0.79); ~Hepatitis C Antibody Nonreactive (Nonreactive)
[2024-06-28 10:39] LABS: HCG Quantitative < 2 mIU/mL; TSH reflex Free T4 1.42 uIU/mL (0.32-4.0)
[2024-06-29 04:11] LABS: CT PCR NOT DETECTED (Not Detect.); NG PCR NOT DETECTED (Not Detect.)
[2024-06-29 18:54] LABS: Prolactin 4.7 ng/mL
== END 2024-06-28 09:08 | disposition home or self-care (01) ==
LOC: HO.LAB 09:07
PROVIDERS: PCP Internal Medicine; Visit Provider Obstetrics & Gynecology
DX: N76.0 Acute vaginitis (principal); B96.89 Other specified bacterial agents as the cause of diseases classified elsewhere; N93.9 Abnormal uterine and vaginal bleeding, unspecified
CPT/HCPCS: 84146; 84443; 84702; 85027; 86780; 86803; 87340; 87389; 87491; 87591

== ENCOUNTER 2024-07-17 09:56 | Outpatient (AMB) | payer OTHER, SELFPAY ==
--- NOTE | 2024-07-17 10:01 | MHC.OFFVIS ---
Vital Signs 07/17/24 10:05 Height 5 ft 6 in Weight 125 lb BMI 20.2 BP 108/74 Blood Pressure Location Lt brachial Position Sitting Intake Visit Reasons: EMB Allergies diphenhydramine [From Benadryl] Allergy (Mild, Verified 07/17/24 10:05) restless legs HPI Comments Details: Presenting for EMB [facility] Medical History Lumbar radicular syndrome Hx of supraventricular tachycardia ADD (attention deficit disorder) Surgical History Hx of section Hx of breast augmentation History of lumbosacral spine surgery History of cardiac radiofrequency ablation (RFA) Family History Maternal Aunt Mental health disorder Family/Other Mental health disorder Paternal Grandfather Goiter Paternal Aunt Breast cancer Father Non-Hodgkin lymphoma Hodgkin lymphoma Mother Breast cancer Sister Cervical cancer Social History Housing: House Alcohol intake: current Alcohol intake frequency: holidays/special occasions only Patient Tobacco Use Status: Current everyday Tobacco user Cigarettes Per Day: 5 service: No Current occupational status: employed 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: 17 Review of Systems Const All systems reviewed & are unremarkable except as noted in HPI and below Reports as per HPI and Reports no additional complaints GI Reports no additional complaints Reports no additional complaints Physical Exam Vital Signs: Last Vital Signs BP 108/74 07/17/24 10:05 BMI result Body Mass Index 20.2 Office Procedures Endometrial Biopsy Details: The patient was counseled regarding the indication and benefits of endometrial sampling to rule out endometrial pathology including not limited to endometrial hyperplasia or endometrial cancer and others; The alternatives (Either do nothing vs. hysteroscopy D&C) & the risks were discussed with the patient including but not limited: pain, uterine perforation, bleeding, infection, possible injury to bladder, bowel, ureter, possible need for blood transfusion with all its possible risks. The patient verbalized understanding all questions answered and signed consent. Urine test done in the office was negative The patient was placed into the dorsal lithotomy position; a speculum was inserted in the vagina. Using aseptic technique for the procedure, the cervix was cleansed with Betadine. The anterior lip of the cervix was grasped with a single tooth tenaculum. The uterus was sounded to 7 cm with a 4 mm Pipelle was used. Tissues samples were obtained and placed in formalin, in a patient labeled container and sent to the pathology department. At the end of the procedure, there was minimal bleeding noted The patient tolerated the procedure well and was discharged in good condition with the following instructions: Nothing in the vagina until the bleeding stops. No sex until the bleeding stops, to call if any of the following occurs: fever (>100.4), flu-like symptoms, abdominal pain, heavy bleeding, four smelling vaginal discharge. The patient was instructed to schedule a Follow up appointment in 2 weeks to discuss pathology results of the biopsy and treatment options. This note was generated with a voice recognition program. Some errors may have been overlooked during the review of this note. Sometimes these errors may affect the content or meaning of a given sentence. 57032-Baodjelunhu Biopsy Results AMB Test Urine AMB Test Urine Negative Last Edit by Daniella Lester CMA on 07/17/24 10:10 Results Reviewed Results Reviewed: Laboratory Last Values Tst Clinic Negative 07/17/24 10:10 Assessment & Plan Assessment & Plan (1) Abnormal uterine bleeding (AUB): Code(s): N93.9 - Abnormal uterine and vaginal bleeding, unspecified Category: Medical Plan: EMB done, see procedure note Orders: Orders AMB HCG Urine Test Today Z32.02 - Encounter for test, result negative Surgical Today N93.9 - Abnormal uterine and vaginal bleeding, unspecified AMB Endometrial Biopsy Today N93.9 - Abnormal uterine and vaginal bleeding, unspecified Coding Level of Care Code Procedure Only Diagnoses Abnormal uterine bleeding (AUB) N93.9 CPT Codes Endometrial Biopsy - CPT: 17581-Yhzbakvylgy Biopsy ([id number])
[2024-07-17 10:05] VITALS: BP 108/74; BMI 20.2
== END 2024-07-17 10:25 | disposition home or self-care (01) ==
LOC: HO.HWS 09:57
PROVIDERS: PCP Internal Medicine; Visit Provider Obstetrics & Gynecology
DX: N93.9 Abnormal uterine and vaginal bleeding, unspecified (principal); Z32.02 Encounter for pregnancy test, result negative
CPT/HCPCS: 58100

== ENCOUNTER 2024-07-17 10:22 | Outpatient (REF) | payer OTHER, SELFPAY | END 2024-07-17 10:23 | disposition home or self-care (01) | LOC: HO.LNP 10:22 | PROVIDERS: Visit Provider Obstetrics & Gynecology | DX: N93.9 Abnormal uterine and vaginal bleeding, unspecified (principal) | CPT/HCPCS: 88305 ==

== ENCOUNTER 2024-07-17 10:31 | Outpatient (REF) | payer OTHER, SELFPAY | END 2024-07-17 10:32 | disposition home or self-care (01) | LOC: HO.US 10:31 | PROVIDERS: PCP Internal Medicine; Visit Provider Obstetrics & Gynecology | DX: N93.9 Abnormal uterine and vaginal bleeding, unspecified (principal); Z32.02 Encounter for pregnancy test, result negative | CPT/HCPCS: 58100; 76830; 76856; 81025 ==

== ENCOUNTER 2024-08-16 09:18 | Outpatient (REF) | payer OTHER, SELFPAY ==
--- NOTE | ~2024-08-16 | MM_ITS ---
EXAMINATION: MM SCREENING DIGITAL BREAST TOMOSYNTHESIS, BILATERAL CLINICAL INFORMATION: Screening. Asymptomatic. COMPARISON: Mammography: Comparison is made with relevant avialable priors. TECHNIQUE: Digital mammography is performed in craniocaudal and mediolateral oblique views along with computer-aided detection (CAD). Digital breast tomosynthesis is performed in implant-displaced craniocaudal and implant-displaced mediolateral oblique views along with computer-aided detection (CAD). FINDINGS: The breasts are heterogeneously dense, which may obscure small masses (ACR BI-RADS breast composition Category c). Bilateral retropectoral implants are stable appearing. There are no significant masses, abnormal calcifications, or other abnormalities. MM/MM tomosynthesis screen imp BI IMPRESSION: There are no significant changes from prior study. ASSESSMENT: BI-RADS BI-RADS 2 - Benign Findings RECOMMENDATION: Routine annual mammography screening. 1 year F/U This patient's information was entered into a reminder system with a target due date for their next mammogram. Electronically signed by: Sue Borjas DO 08/22/2024 11:50 AM VITALIY
== END 2024-08-16 09:19 | disposition home or self-care (01) ==
LOC: HO.MAMMO 09:18
PROVIDERS: PCP Internal Medicine; Visit Provider Obstetrics & Gynecology
DX: Z12.31 Encounter for screening mammogram for malignant neoplasm of breast (principal)
CPT/HCPCS: 77063; 77067

== ENCOUNTER → 2024-08-16 09:30 | Outpatient (BNV) | payer OTHER, SELFPAY | PROVIDERS: PCP Internal Medicine; Visit Provider Internal Medicine | DX: Z12.31 Encounter for screening mammogram for malignant neoplasm of breast (principal) | CPT/HCPCS: 77063; 77067 ==

== ENCOUNTER 2025-02-09 08:39 | Outpatient (AMB) | payer OTHER, SELFPAY ==
--- NOTE | 2025-02-09 08:39 | MHC.OFFVIS ---
Intake Visit Reasons: results Allergies diphenhydramine [From Benadryl] Allergy (Mild, Verified 07/17/24 10:05) restless legs HPI Comments Details: The patient is scheduled a telehealth for follow-up. The following workup S be done so far for abnormal uterine bleeding H&H= 12.3/37 TSH, prolactin, hCG, GC and chlamydia were negative. Endometrial biopsy pathology showed the following: Superficial fragments of proliferative endometrium; no atypia or hyperplasia identified Co testing was done in 03/02 was negative. Mammogram was BI-RADS 2 in 09/05 Pelvic ultrasound done in 08/06 which showed the following: UTERUS: The uterus is anteverted. Size: 7.4 x 4.3 x 5.4 cm. Uterine mass: There is no uterine mass. Cervix: Grossly unremarkable. Endometrium: No ultrasound evidence of endometrial lesion. endometrial thickness measures ADNEXA: Normal Right ovary: Normal in size. There are cysts the largest measure up to 3.4 cm Left ovary: Normal in size. There are cysts the largest measure up to 1.7 cm. Doppler exam: Normal Doppler flow identified in both ovaries. FREE FLUID: Trace amount of free fluid. OTHER FINDINGS: Dilated vein in the adnexa, cannot rule out pelvic congestion. [facility] Medical History Lumbar radicular syndrome Hx of supraventricular tachycardia ADD (attention deficit disorder) Surgical History Hx of section Hx of breast augmentation History of lumbosacral spine surgery History of cardiac radiofrequency ablation (RFA) Family History Maternal Aunt Mental health disorder Family/Other Mental health disorder Paternal Grandfather Goiter Paternal Aunt Breast cancer Father Non-Hodgkin lymphoma Hodgkin lymphoma Mother Breast cancer Sister Cervical cancer Social History Housing: House Alcohol intake: current Alcohol intake frequency: holidays/special occasions only Patient Tobacco Use Status: Current everyday Tobacco user Cigarettes Per Day: 5 service: No Current occupational status: employed 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: 17 Review of Systems Const All systems reviewed & are unremarkable except as noted in HPI and below Reports as per HPI and Reports no additional complaints GI Reports no additional complaints Reports no additional complaints Telehealth Telehealth Telehealth Platform: Telephone Location of provider rendering services: practice address Location of patient: address on file Patient Identification confirmed using: Name, : Yes Telehealth method: video Patient verbally consented to treatment: Yes Patient verbally consented to billing insurance company: Yes Patient informed of any privacy concerns related to visit: Yes Minutes spent on Phone/Video with Pt.: 6 Assessment & Plan Assessment & Plan (1) Abnormal uterine bleeding (AUB): Code(s): N93.9 - Abnormal uterine and vaginal bleeding, unspecified Category: Medical Plan: Discussed with the patient the results of the work up done and options of treatment including Lysteda, BCP's, Mirena IUD, endometrial ablation and hysterectomy. All pros, cons, risks and benefits if each option was discussed with the patient and the patient decided to think about it and get back to us. All questions answered the patient verbalized understanding. I spent a total of 20 minutes reviewing the chart, talking to the patient via video and documenting in the medical record. Coding Level of Care Code Tele Est Pt Level 3 (56394) Diagnoses Abnormal uterine bleeding (AUB) N93.9
--- OUTSIDE RECORDS SUMMARY | 2025-02-09 08:41 | XMS_ITS | Data Portability ---
Author Organization [facility] Address [address] [place], [place] Assessment No assessment recorded. Plan of Treatment Reminders Order Date Submit Date Provider Last Modified By Organization Details Last Modified Time Details Appointments None record ed. Lab None record ed. Referral None record ed. Procedures None record ed. Surgeries None record ed. Imaging None record ed. Medication Orders None record ed. Patient TargetsNo targets recorded. Patient Instructions Encounter Date Encounter Id Patient Instructions Last Modified By Organization Details Last Modified Time 03/13/2019 [id number] test (HCG): about this test sammie Not available 05/26/2019 17:04:01 Reason for Referral None Reported. Results Created Date Observation Date Name Description Value Unit Range Abnormal Flag Note LastModifiedBy Organization Detail LastModifiedTime 03/13/2003/14/2019 abo group + rh type, blood ABO/Rh blood type O Pos Not Available [facility] [address], [place], [address], 03/14/2019 14:24:59 03/13/20 19 03/14/2019 beta- HCG, quant itati ve, serum or plasm a HCG., quant 17282. 0 mIU/m L see below HCG, SERUM , QUANT Weeks of Gesta tion Range (mIU/ mL) 3 5.8-7 1.2 4 9.5-7 50.0 5 217.0 -7,13 8.0 6 158.0 -31,7 95.0 7 3,697 .0-16 3,563 .0 8 32,06 5.0-1 49,57 1.0 9 63,80 3.0-1 51,41 0.0 10 46,50 9.0-1 86,97 7.0 12 27,83 2.0-2 10,61 2.0 14 13,95 0.0-6 2,530 .0 15 12,03 9.0-7 0,971 .0 16 9,040 .0-56 ,451. 0 17 8,175 .0-55 ,868. 0 18 8,099 .0-58 ,176. 0 Non-P regna nt < or=5. 2 Postm enopa usal < or=7. 0 NOTE: Range s are to be used as guide lines only. Very low resul ts must be inter prete d along with other clini nasima infor matio n as indic ators of pregn floyd. Not Available [facility] [address], [place], [address], 03/14/2019 14:24:59 03/13/20 19 03/14/2019 proge stero ne, serum progesterone 30.73 NG/mL see below PROGE STERO NE EXPEC SADA VALUE S Range (ng/m L) Femal e Folli cular Phase 0.06- 0.89 Ovula tion Phase 0.12- 12.00 Lutea l Phase 1.83- 23.90 Postm enopa usal <0.14 Pregn floyd (Trim ricky ) 1st 11.00 -44.3 0 2nd 25.40 -83.3 0 3rd 58.70 -214. 00 Not Available [facility] [address], [place], [address], 03/14/2019 14:24:59 Result Notes None recorded. Problems Name Problem SNOMED Code Status Onset Date Resolution Date Notes Provider Name and Address Organization Details Recorded Time Blood group O Rh(D) positive 265839205 Active 019 Ariana tobar [facility] 9 16:40:29 Problem Notes None recorded. Medical Equipment None Reported. Medications Name Sig Start Date Stop Date Status Note LastModified by Organization Details LastModified Time cyclobenzaprine 10 mg tablet active Not Available Not Available No t Available gabapentin 600 mg tablet active Not Available Not Available Not Available ondansetron HCl 4 mg tablet active Not Available Not Available No t Available tramadol 50 mg tablet active Not Available Not Available Not Available syringe with needle 3 mL 22 x 1 1/2 active Not Available Not Avail able Not Available methocarbamol 750 mg tablet active Not Available Not Available No t Available hydrocodone 7.5 mg-acetaminophen 325 mg tablet active Not Available Not Availabl e Not Available cyanocobalamin (vit B-12) 1,000 mcg/mL injection solution active Not Available Not Christelle ilable Not Available dextroamphetamine-a mphetamine 20 mg tablet active Not Available Not Available Not Available gabapentin 300 mg capsule active Not Available Not Available Not Available dextroamphetamine-a mphetamine ER 10 mg 24hr capsule,extend release active Not Available Not Available Not Available ergocalciferol (vitamin D2) 1,250 mcg (50,000 unit) capsule active Not Available Not Available Not Available methylprednisolone 4 mg tablets in a dose pack active Not Available Not Available No t Available hydromorphone 4 mg tablet active Not Available Not Available Not Available naproxen 500 mg tablet active Not Available Not Available Not Available diazepam 5 mg tablet active Not Available Not Available Not Available Vyvanse 60 mg capsule active Not Available Not Available Not Available Vitals None Recorded Social History None recorded. Functional Status None recorded. Mental Status None recorded. Family History Nothing Reported. Medical History No medical history recorded. Gynecological HistoryNo gynecological history recorded. Obstetrics History GPAL:G 0 P 0 0 0 0 Past Encounters Encounter ID Performer Location Encounter Start Date Encounter Closed Date Diagnosis/Indication Diagnosis SNOMED-CT Code Diagnosis ICD10 Code Diagnosis Note [id number] Lisa Gill MD Main Office [address] [id number] 03/13/2019 12:00:24 05/26/2019 17:04:24 detection examination [id number] Z32.00 Health Concerns Section Related Observation LastModified by Organization Detai ls LastModified Time None Recorded Concern Status LastModified by Organization Details LastModified Time None Recorded Advance Directives Directive None Recorded Payers Encounter Date Sequence Insurance Name Policy Number Policy Padron Covered Member ID Padron Member ID Guarantor Name 03/13/2019 1 [employer] [id number] Nohemi Gilliam [id number] Nohemi Gilliam OBGyn Episode No OBEpisode recorded.
== END 2025-02-09 09:00 | disposition home or self-care (01) ==
LOC: HO.HWS 08:39
PROVIDERS: PCP Internal Medicine; Visit Provider Obstetrics & Gynecology
DX: N93.9 Abnormal uterine and vaginal bleeding, unspecified (principal)
CPT/HCPCS: 99213

== ENCOUNTER 2025-03-05 08:12 | Outpatient (REF) | payer OTHER, SELFPAY ==
--- OUTSIDE RECORDS SUMMARY | 2025-03-05 08:18 | XMS_ITS | Data Portability ---
Author Organization [facility] - OP Address [address] [place], [place] Assessment No assessment recorded. Plan of [...] By Organization Details Last Modified Time 03/13/2019 12198 test (HCG): about this test sammie Not available 05/26/2019 17:04:01 Reason for Referral None Reported. Results Created Date Observation Date Name Description Value Unit Range Abnormal Flag Note LastModifiedBy Organization Detail LastModifiedTime 03/13/2003/14/2019 abo group + rh type, blood ABO/Rh blood type O Pos Not Available [facility] ([facility]) [facility] [address], [place], [address], 03/14/2019 14:24:59 03/13/2003/14/2019 beta- HCG, quant itati ve, serum or plasm a HCG., quant 84931. 0 mIU/m L see below HCG, SERUM [...] indic ators of pregn floyd. Not Available [facility] ([facility]) [address], [place], [address], 03/14/2019 14:24:59 03/13/20 19 03/14/2019 proge stero [...] 0 3rd 58.70 -214. 00 Not Available [facility] ([facility]) [address], [place], [address], 03/14/2019 14:24:59 Result Notes None recorded. Problems Name Problem SNOMED Code Status Onset Date Resolution Date Notes Provider Name and Address Organization Details Recorded Time Blood group O Rh(D) positive 220351097 Active 019 Ariana tobar, [facility] OBGYN 9 16:40:29 Problem Notes None recorded. [...] SNOMED-CT Code Diagnosis ICD10 Code Diagnosis Note 39809 Lisa Gill MD Main Office [address] [address] 03/13/2019 12:00:24 05/26/2019 17:04:24 detection examination 10457785 Z32.00 Health Concerns Section Related Observation LastModified by Organization Detai ls LastModified Time None Recorded Concern Status LastModified by Organization Details LastModified Time None Recorded Advance Directives Directive None Recorded Payers Insurance Date Sequence Insurance Name Policy Number Policy Padron Covered Member ID Padron Member ID Guarantor Name 05/26/2019 1 [employer] (PPO) [id number] Nohemi Gilliam [id number] Nohemi Gilliam OBGyn Episode No OBEpisode recorded.
[2025-03-05 10:22] LABS: MANUAL DIFF FLAG NO
[2025-03-05 10:29] LABS: Basophils Percent Auto 0.4 % (0-2); Eosinophils Absolute Auto 0.3 X10*3/uL (0.0-0.4); Eosinophils Percent Auto 3.7 % (0-4); Hematocrit 36.5 % (37.0-47.0); Imm Gran Abs Auto 0.01 X10*3/uL (0.00-0.03); Imm Gran Pct Auto 0.1 % (0.0-0.4); Lymphocytes Absolute Auto 1.8 X10*3/uL (1.2-4.9); Lymphocytes Percent Auto 25.1 % (20-40); Mean Corpuscular HGB Conc 32.9 g/dl (31.0-35.0); Mean Corpuscular Volume 97.3 fL (80.0-98.0); Mean Platelet Volume 9.7 fL (9.4-12.3); Monocytes Absolute Auto 0.5 X10*3/uL (0.1-1.2); Neutrophils Absolute Auto 4.6 x10*3/uL (2.0-8.3); Neutrophils Percent Auto 63.7 % (45-73); Platelet Count 207 X10*3/uL (160-400); Red Blood Count 3.75 X10*6/uL (4.20-5.50); White Blood Count 7.3 X10*3/uL (4.8-10.8)
[2025-03-05 10:59] LABS: Alanine Aminotransferase 20 U/L (0-31); Albumin Level 4.2 g/dL (3.5-5.0); Alkaline Phosphatase 54 U/L (39-117); Anion Gap 11 (12-20); Aspartate Amino Transferase 28 U/L (5-31); Bilirubin Total 0.3 mg/dL (0.0-1.0); Blood Urea Nitrogen 17 mg/dL (9-16); Calcium 8.8 mg/dL (8.4-10.2); Carbon Dioxide 23 mmol/L (22-29); Chloride 109 mmol/L (96-108); Cholesterol 165 mg/dL (<200); Estimated Glomerular Filt Rate > 60; Glucose Fasting 91 mg/dL (60-99); HDL Cholesterol 70 mg/dL (>40); LDL Cholesterol Calculated 85 mg/dL (<100); Potassium 4.2 mmol/L (3.3-5.1); Sodium 139 mmol/L (135-145); Total Protein 6.7 g/dL (6.5-8.0); Triglycerides 53 mg/dL (<150)
[2025-03-09 20:19] LABS: Estrogen 640 pg/mL
== END 2025-03-05 08:13 | disposition home or self-care (01) ==
LOC: HO.HMGCLDS 08:12
PROVIDERS: PCP Internal Medicine; Visit Provider Internal Medicine
DX: E78.5 Hyperlipidemia, unspecified (principal); R53.83 Other fatigue
CPT/HCPCS: 36415; 80053; 80061; 82672; 85025

== ENCOUNTER 2025-04-05 09:38 | Outpatient (REF) | payer OTHER, SELFPAY ==
[2025-04-05 13:40] LABS: Hemoglobin A1C 103.7598 umol/L; Total Hemoglobin (HGBA1C) 3260.6769 umol/L
[2025-04-05 13:46] LABS: Magnesium 2.1 mg/dL (1.6-2.6)
[2025-04-05 14:10] LABS: Folate 13.1 ng/mL (> or = 4.0); Vitamin B12 437 pg/mL (200-900)
== END 2025-04-05 09:39 | disposition home or self-care (01) ==
LOC: HO.HMGCLDS 09:38
PROVIDERS: PCP Internal Medicine; Visit Provider Physician Assistant Medical
DX: Z00.00 Encounter for general adult medical examination without abnormal findings (principal); Z76.89 Persons encountering health services in other specified circumstances; I45.6 Pre-excitation syndrome; F41.9 Anxiety disorder, unspecified; G25.81 Restless legs syndrome; D64.9 Anemia, unspecified
CPT/HCPCS: 36415; 82306; 82607; 82746; 83036; 83735; 84443; 96127; 99202

== ENCOUNTER 2025-04-05 09:38 | Outpatient (AMB) | payer OTHER, SELFPAY ==
--- NOTE | 2025-04-05 09:40 | MHC.PC.OV ---
Vital Signs 04/05/25 09:45 Height 5 ft 6.54 in Weight 128 lb 6 oz BMI 20.4 BP 122/84 Blood Pressure Location Lt brachial Position Sitting Respiration 16 Pulse 60 Pulse Source Pulse Oximeter Temp 98.8 F Temp Source Temporal Artery Scan Pulse Oximetry (%) 99 Oxygen Delivery Method Room Air Intake Visit Reasons: establish care Maintenance Analyst Required: No Accompanied by: Self / Same As Patient Allergies diphenhydramine (From Benadryl) Allergy (Mild, Verified 04/05/25 10:34) restless legs Medication List - Last Reconciled 04/05/25 by Dayan Lopez PA-C clonazepam 1 mg PO BEDTIME PRN dextroamphetamine-amphetamine 30 mg 1 tab PO BID gabapentin 300 mg PO BID metoprolol succinate ER 25 mg PO DAILY Tobacco use date assessed: 04/05/25 Dental Screening Dental Screen Date: 04/05/25 Did you have a dental visit in the last 12 months?: Yes Did you have a dental problem in the last 6 months where you did not have access to dental care?: No Was dental information given to patient?: Patient has dentist HPI establish care HPI Details The patient is a 44-year-old female presenting for a new patient appointment as patient is a patient of Dr. Raman watson. She is here for medication review and management of existing conditions. 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 She was not on medication post-ablation until she moved back to the [facility], where she resumed medication. Recently, she has experienced dizziness and palpitations, which she attributes to the intake of multiple vitamins and supplements. The patient reports anxiety and restless legs syndrome, for which she takes clonazepam. She has attempted to wean off gabapentin, which was initially prescribed for restless legs syndrome, but experienced severe anxiety upon cessation. She is currently trying to reduce her gabapentin dosage gradually. The patient was found to be slightly anemic during her last blood work, conducted on March 05. She has a history of dense breast tissue, for which an MRI was recommended, but she is unable to lay flat due to back issues. She also has a history of internal hemorrhoids, stage 2 or 3, which necessitated a referral for a colonoscopy. 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 - Family status: The patient has a daughter and lives alone. - Exercise: The patient has not mentioned any specific exercise routine. - Nutritional intake: The patient takes multiple vitamins and supplements. [facility] Medical History Colon cancer screening Preventative health care Anemia Kmdbb-Ulgxmjtfs-Potmx syndrome Establishing care with new doctor, encounter for Anxiety Restless leg syndrome Lumbar radicular syndrome Hx of supraventricular tachycardia ADD (attention deficit disorder) Surgical History Hx of section Hx of breast augmentation History of lumbosacral spine surgery History of cardiac radiofrequency ablation (RFA) Family History Maternal Aunt Mental health disorder Family/Other Mental health disorder Paternal Grandfather Goiter Paternal Aunt Breast cancer Father Non-Hodgkin lymphoma Hodgkin lymphoma Mother Breast cancer Sister Cervical cancer Social History Housing: Apartment Alcohol intake: current Alcohol intake frequency: holidays/special occasions only Patient Tobacco Use Status: Current everyday Tobacco user Cigarettes Per Day: 4 service: No Current occupational status: employed Cognitive needs: No Hearing needs: No Vision needs: Yes (rx glasses) Female Reproductive History Menstrual 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: 17 Questionnaire PHQ-9 Over the last 2 weeks, how often have you been bothered by any of the following problems? 1. Little interest or pleasure in doing things: not at all 2. Feeling down, depressed, or hopeless: not at all 3. Trouble falling or staying asleep, or sleeping too much: not at all 4. Feeling tired or having little energy: not at all 5. Poor appetite or overeating: not at all 6. Feeling bad about yourself - or that you are a failure or have let yourself or your family down: not at all 7. Trouble concentrating on things, such as reading the newspaper or watching television: not at all 8. Moving or speaking so slowly that other people could have noticed. Or the opposite - being so fidgety or restless that you have been moving around a lot more than usual: not at all 9. Thoughts that you would be better off or of hurting yourself in some way: not at all Total score: 0 Depression Screening Interpretation: Negative Depression Screening Done: Yes 22618 - PHQ-9 Billing: Yes Source: Developed by Drs. Matthew Moreno, Justine Izquierdo, Meng Martin and colleagues, with an educational arianna from [employer]. Thrive Questionnaire Date Thrive assessed: 04/05/25 I am a: Patient What is your living situation today?: I have a steady place to live Within the past 12 months, did the food you bought not last and you didn't have the money to get more?: Never true Within the past 12 months, did you worry whether your food would run out before you got money to buy more?: Never true Do you have trouble paying for medicines?: No Do you have trouble getting transportation to medical appointments?: No Do you have trouble paying your heating and electricity bill?: No Do you have trouble taking care of your child, family member or friend?: No Do you have trouble with day-to-day activities such as bathing, preparing meals, shopping, managing finances, etc.?: No Are you currently unemployed and looking for a job?: No Are you interested in more education?: No Please select the resources that you would like help with: None Currently or been in a relationship where the following occur: No concerns reported THRIVE Score: 0 AUDIT C Alcohol Use Questionnaire (AUDIT-C) 1. How often do you have a drink containing alcohol?: Monthly or less 2. How many drinks containing alcohol do you have on a typical day when you are drinking?: 1 or 2 3. How often do you have six or more drinks on one occasion?: Never Total Score: 1 Score Reviewed/Action Taken: No ANIL-7 AMB Questionnaire ANIL-7 Date ANIL - 7 assessed: 04/05/25 Feeling nervous, anxious, or on edge: 0 = Not at all Not being able to stop or control worryin = Not at all Worrying too much about different things: 0 = Not at all Trouble relaxin = Not at all Being so restless that it is hard to sit still: 0 = Not at all Becoming easily annoyed or irritable: 0 = Not at all Feeling afraid as if something awful might happen: 0 = Not at all Total ANIL-7 score (0-4 normal; 5-9 mild; 10-14 moderate; 15-21 severe): 0 Source: Developed by Drs. Matthew Moreno, Justine Izquierdo, Meng Martin and colleagues, with an educational arianna from [employer]. ANIL-7 Assessment Billing ANIL-7 Assessment Tool: ANIL-7 Assessment 90620 Review of Systems Const Details: - Cardiovascular: Reports palpitations and dizziness. Denies chest pain or shortness of breath. - Neurological: Reports migraines and dizziness. Denies syncope. - Musculoskeletal: Reports restless legs syndrome. - Psychiatric: Reports anxiety. All systems reviewed & are unremarkable except as noted in HPI and below Physical exam (Primary Care) Vital Signs: Last Vital Signs Temp 98.8 F 04/05/25 09:45 Pulse 60 04/05/25 09:45 Resp 16 04/05/25 09:45 BP 122/84 04/05/25 09:45 Pulse Ox 99 04/05/25 09:45 Oxygen Delivery Method Room Air 04/05/25 09:45 Care Plan Goal for BP management: <140/90 at Goal BMI result Body Mass Index 20.4 Normal BMI Tobacco/Smoking Status: Tobacco use Status Tobacco use date assessed 04/05/25 04/05/25 10:00 Patient Tobacco Use Status Current everyday Tobacco 04/05/25 10:00 PHQ-9: PHQ-9 Score PHQ-9: Total score 0 04/05/25 10:00 Depression Screening Interpretation: Negative Thrive Assessment: Date of Thrive Assessment Date Thrive assessed 04/05/25 04/05/25 10:00 Currently or been in a relationship where the following occur: No concerns reported Const Other: Appearance: Alert. Oriented X3. No acute distress. Head: Normal external exam. Normocephalic. Atraumatic. Eyes: Pupils are equal, round, and reactive to light. Extraocular movements intact. Conjunctiva and sclera normal. Eyelids normal. Throat: Pharynx normal. Uvula midline. Moist mucous membranes. Neck: Normal inspection. Neck supple. Full range of motion. Cardiovascular: Normal heart rate and rhythm. Heart sound normal. No murmurs noted. Pulses normal throughout. Respiratory: No respiratory distress. Painless inspiration. Breath sounds normal. No wheezes/rales/rhonchi noted. No accessory muscle usage noted or decreased air movement noted. Back: Full range of motion noted. Skin: Skin warm and dry. Normal skin color. Extremities: No lower extremity edema. Extremities exhibit normal range of motion. Results Reviewed Results Reviewed: - Labs: Slight anemia noted in recent blood work. - Labs: Normal sodium, potassium, BUN, creatinine, GFR, and liver enzymes. - Labs: Normal cholesterol levels. Coding Level of Care Code New Pt Level 5 (37192) Complex EM visit Add On G2211 Diagnoses Establishing care with new doctor, encounter for Z76.89 Nptpa-Kwmsfnpqg-Aamln syndrome I45.6 Anxiety F41.9 Restless leg syndrome G25.81 Anemia D64.9 Preventative health care Z00.00 Colon cancer screening Z12.11 Additional Codes PHQ-9 - 54514 - PHQ-9 Billing: Yes ([id number]) ANIL-7 Assessment Billing - ANIL-7 Assessment Tool: ANIL-7 Assessment 83456 ([id number]) Assessment & Plan Assessment & Plan (1) Establishing care with new doctor, encounter for: Code(s): Z76.89 - Persons encountering health services in other specified circumstances Category: Medical (2) Gdtuq-Mkleocodc-Hcgyg syndrome: Code(s): I45.6 - Pre-excitation syndrome Category: Medical Plan: The patient will be referred to her learning program manager, Dr. Sunshine, for further evaluation and management of her Tqtby-Ketvvtjdy-Wwuoz syndrome, given her recent symptoms of dizziness and palpitations. A Holter monitor and EKG have been considered to assess her cardiac rhythm, but she will consult with her learning program manager before proceeding. Condition is chronic and stable continue to monitor. (3) Anxiety: Code(s): F41.9 - Anxiety disorder, unspecified Category: Medical Plan: The patient is currently taking clonazepam for anxiety and restless legs syndrome. A referral to Demetra Hollingsworth for further evaluation and potential adjustment of her medication regimen has been made. Condition is chronic and stable continue to monitor. (4) Restless leg syndrome: Code(s): G25.81 - Restless legs syndrome Category: Medical Plan: The patient is attempting to wean off gabapentin, which was initially prescribed for restless legs syndrome, and is currently taking clonazepam as an alternative. She will discuss alternative treatments with Demetra Hollingsworth during her consultation. Condition is chronic and stable continue to monitor. (5) Anemia: Code(s): D64.9 - Anemia, unspecified Category: Medical Plan: The patient was found to be slightly anemic during her last blood work. Further evaluation of her anemia will be conducted, including checking her thyroid, vitamin B12, and vitamin D levels. Condition is chronic and stable will continue to monitor. (6) Preventative health care: Code(s): Z00.00 - Encounter for general adult medical examination without abnormal findings Category: Medical Plan: The patient has been referred for a colonoscopy due to her history of internal hemorrhoids and the need for colon cancer screening. She will be contacted by the GI department to schedule the procedure. (7) Colon cancer screening: Code(s): Z12.11 - Encounter for screening for malignant neoplasm of colon Category: Medical Plan: The patient has been referred for a colonoscopy due to her history of internal hemorrhoids and the need for colon cancer screening. She will be contacted by the GI department to schedule the procedure. Plan Plan Patient was informed and verbally consented to the use of an ambient scribe for clinic note documentation during this visit. 1. Vqesi-Pjdegalqv-Hiuoc Syndrome The patient will be referred to her learning program manager, Dr. Sunshine, for further evaluation and management of her Ihbbe-Dxoyjnhsi-Yiotd syndrome, given her recent symptoms of dizziness and palpitations. A Holter monitor and EKG have been considered to assess her cardiac rhythm, but she will consult with her learning program manager before proceeding. 2. Anxiety The patient is currently taking clonazepam for anxiety and restless legs syndrome. A referral to Demetra Hollingsworth for further evaluation and potential adjustment of her medication regimen has been made. 3. Restless Legs Syndrome The patient is attempting to wean off gabapentin, which was initially prescribed for restless legs syndrome, and is currently taking clonazepam as an alternative. She will discuss alternative treatments with Demetra Hollingsworth during her consultation. 4. Anemia The patient was found to be slightly anemic during her last blood work. Further evaluation of her anemia will be conducted, including checking her thyroid, vitamin B12, and vitamin D levels. 5. Preventative Care: Colonoscopy Referral For Colon Cancer Screening The patient has been referred for a colonoscopy due to her history of internal hemorrhoids and the need for colon cancer screening. She will be contacted by the GI department to schedule the procedure. During the visit, we discussed the patient's current medication regimen and her desire to reduce her reliance on medications, particularly gabapentin and clonazepam. We explored the possibility of consulting with Demetra Hollingsworth to evaluate alternative treatments and adjust her medication as needed. The patient was advised to follow up with her learning program manager, Dr. Zimmerman, regarding her Yrnxl-Rkrqsftsw-Nsxwx syndrome and recent symptoms of dizziness and palpitations. A referral for a colonoscopy was made to address her history of internal hemorrhoids and for colon cancer screening. Orders: Orders ECG 12 lead EKG Today Z86.79 - Personal history of other diseases of the circulatory system Hemoglobin A1c Today Z00.00 - Encounter for general adult medical examination without abnormal findings TSH reflex Free T4 Today Z00.00 - Encounter for general adult medical examination without abnormal findings Vitamin B12 and Folate Today Z00.00 - Encounter for general adult medical examination without abnormal findings Vitamin D 25-OH Total Today Z00.00 - Encounter for general adult medical examination without abnormal findings Magnesium Today Z00.00 - Encounter for general adult medical examination without abnormal findings Referrals Psychiatry Outpatient Consultation Service F41.9 - Anxiety disorder, unspecified, F98.8 - Other specified behavioral and emotional disorders with onset usually occurring in childhood and adolescence, G25.81 - Restless legs syndrome Gastroenterology Referral Z12.11 - Encounter for screening for malignant neoplasm of colon Patient Instructions: - Follow up with your learning program manager, Dr. Sunshine, regarding your Wfkhv-Mprxgfyob-Rxlsu syndrome and recent symptoms. - Schedule and attend the colonoscopy appointment as referred by the GI department. - Consult with Demetra Hollingsworth to discuss potential adjustments to your medication regimen. - Continue to monitor your symptoms and report any significant changes.
[2025-04-05 09:45] VITALS: BP 122/84; PULSE 60; RESP 16; TEMP 37.1; O2SAT 99; BMI 20.4
--- OUTSIDE RECORDS SUMMARY | 2025-04-05 10:17 | XMS_ITS | Data Portability ---
Author Organization [facility] - OP Address [address] [place], [place] Assessment No assessment recorded. Plan of [...] By Organization Details Last Modified Time 03/13/2019 70052 test (HCG): about this test sammie Not available 05/26/2019 17:04:01 Reason for Referral None Reported. Results Created Date Observation Date Name Description Value Unit Range Abnormal Flag Note LastModifiedBy Organization Detail LastModifiedTime 03/13/2003/14/2019 abo group + rh type, blood ABO/Rh blood type O Pos Not Available [facility] ([facility]) [facility] [address], [place], [address], 03/14/2019 14:24:59 03/13/2003/14/2019 beta- HCG, quant itati ve, serum or plasm a HCG., quant 91854. 0 mIU/m L see below HCG, SERUM [...] indic ators of pregn floyd. Not Available [facility] ([facility]) [address], [place], [address], 03/14/2019 14:24:59 03/13/20 19 03/14/2019 proge stero [...] 0 3rd 58.70 -214. 00 Not Available [facility] ([facility]) [address], [place], [address], 03/14/2019 14:24:59 Result Notes None recorded. Problems Name Problem SNOMED Code Status Onset Date Resolution Date Notes Provider Name and Address Organization Details Recorded Time Blood group O Rh(D) positive 613712664 Active 019 Ariana tobar, [facility] OBGYN 9 16:40:29 Problem Notes [...] SNOMED-CT Code Diagnosis ICD10 Code Diagnosis Note 40228 Lisa Gill MD Main Office [address] [address] 03/13/2019 12:00:24 05/26/2019 17:04:24 detection examination 51908342 Z32.00 Health Concerns Section Related Observation LastModified by Organization Detai ls LastModified Time None Recorded Concern Status LastModified by Organization Details LastModified Time None Recorded Advance Directives Directive None Recorded Payers Insurance Date Sequence Insurance Name Policy Number Policy Padron Covered Member ID Padron Member ID Guarantor Name 05/26/2019 1 [employer] ([employer]) [id number] Nohemi Gilliam [id number] Nohemi Gilliam OBGyn Episode No OBEpisode recorded.
--- OUTSIDE RECORDS SUMMARY | 2025-04-05 10:17 | XMS_ITS | Encounter Summary ---
Author Organization [facility] Address [address] [place] [address] Phone Care Team Providers Care Taxicab Driver Name Role Phone Citlalli Lee MD Primary Care Provider Sumeet Servin MD Primary Care Provider [phone] Encounter Details Date Type Department Care Team ([facility] Contact Info) Description 11/05/2021 Procedure Pass Echo Lab [address] [place] [address] Social History Tobacco Use Types Packs/Day Years Used Date Smoking Tobacco: Light Smoker Alcohol Use Standard Drinks/Week Comments Yes 0 (1 standard drink = 0.6 oz pur e alcohol) Comments Unknown Sex and Gender Information Value Date Recorded Sex Assigned at Not on file Legal Sex Female 12:10 PM EST Gender Identity Not on file Sexual Orientation Not on file documented as of this encounter Plan of Treatment Not on file documented as of this encounter Visit Diagnoses Not on filedocumented in this encounter Care Teams Taxicab Driver Relationship Specialty Start Date End Date Citlalli Lee MD [address] [place] [address] [place] [address] PCP - General Internal Medicine 11/03/21 01/03/23 Sumeet Servin MD [address] [place] [address] PCP - General Internal Medicine 01/04/23 documented as of this encounter Additional Source Comments The information contained in this document represents components of the legal health record. It is not the complete legal health record[facility]
== END 2025-04-05 10:31 | disposition home or self-care (01) ==
LOC: HO.HMCSH 09:39
PROVIDERS: PCP Internal Medicine; Visit Provider Physician Assistant Medical
DX: G25.81 Restless legs syndrome (principal); I45.6 Pre-excitation syndrome; F41.9 Anxiety disorder, unspecified; D64.9 Anemia, unspecified; Z12.11 Encounter for screening for malignant neoplasm of colon

== ENCOUNTER 2025-04-16 11:13 | Outpatient (AMB) | payer OTHER, SELFPAY ==
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
--- OUTSIDE RECORDS SUMMARY | 2025-04-16 12:10 | XMS_ITS | Encounter Summary ---
Author Organization [facility] Address [address] [place] [address] Phone Care Team Providers Care Rn Acute Care Name Role Phone Citlalli Lee MD Primary Care Provider Sumeet Servin MD Primary Care Provider [phone]- [phone] Doug Cruz MD Primary Care Provid er Encounter Details Date Type Department Care Team (Late st Contact Info) Description 11/05/2021 Procedure Pass Echo Lab [address] [place] [address] Social History Tobacco Use Types Packs/Day Years [...] as of this encounter Plan of Treatment Upcoming Encounters Date Type Department Care Team (Late st Contact Info) Description 04/09/2025 Procedure Pass [facility] [address] [place] [address] 04/09/2025 Procedure Pass Echo Lab [address] [place] [address] 04/18/2025 9:15 AM EDT Appointment Event Monitor [address] [place] [address] Leonard Sunshine, DO [address] [place] [address] [email or web address] 05/04/2025 11:15 AM EDT Appointment [facility] [address] [place] [address] Leonard Sunshine, DO [address] [place] [address] 07/11/2025 9:00 AM EDT Office Visit [facility] [address] [place] [address] Dr [address] Floor, [address] [place] [address] Leonard Sunshine, DO [address] [place] [address] documented as of this encounter Visit Diagnoses Not on filedocumented in this encounter Care Teams Rn Acute Care Relationship Specialty Start Date End Date Citlalli Lee MD [facility] [place] [address] PCP - General Internal Medicine 11/03/21 01/03/23 Sumeet Servin MD [address] [place] [address] PCP - General Internal Medicine 01/04/23 04/08/25 Doug Cruz MD [address] [place] [address] PCP - General Internal Medicine 04/09/25 documented as of this encounter Additional Source Comments The information contained in this document represents components of the legal health record. It is not the complete legal health record.[facility]
== END 2025-04-16 12:21 | disposition home or self-care (01) ==
LOC: HO.HOP 11:13
PROVIDERS: PCP Internal Medicine; Visit Provider Clinical Nurse Specialist Psychiatric/Mental Health
DX: F90.2 Attention-deficit hyperactivity disorder, combined type (principal); F41.1 Generalized anxiety disorder
CPT/HCPCS: 90792

== ENCOUNTER → 2025-04-16 11:13 | Outpatient (BNVA) | payer OTHER, SELFPAY | PROVIDERS: PCP Internal Medicine; Visit Provider Clinical Nurse Specialist Psychiatric/Mental Health | DX: F90.2 Attention-deficit hyperactivity disorder, combined type (principal); F41.1 Generalized anxiety disorder | CPT/HCPCS: 90792 ==

== ENCOUNTER 2025-05-03 09:27 | Outpatient (AMB) | payer OTHER, SELFPAY ==
--- NOTE | 2025-05-03 09:27 | A.OFFPC_ITS ---
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 Accompanied by: Self / Same As Patient Allergies diphenhydramine (From Benadryl) Allergy (Mild, Verified 05/03/25 12:17) restless legs Medication List - Last Reconciled 05/03/25 by Dayan Lopez PA-C clonazepam 1 mg PO BEDTIME PRN dextroamphetamine-amphetamine 30 mg 1 tab PO DAILY gabapentin 100 mg PO BID magnesium glycinate 100 mg PO BID metoprolol succinate ER 25 mg PO DAILY Tobacco use date assessed: 04/05/25 Dental Screening Dental Screen Date: 04/05/25 Did you have a dental visit in the last 12 months?: Yes Did you have a dental problem in the last 6 months where you did not have access to dental care?: No Was dental information given to patient?: Patient has dentist HPI 4 week follow up HPI Details The patient is a 44-year-old female presenting for a follow-up visit to manage ongoing health concerns and preventative care. The patient has been experiencing anxiety, for which she has been prescribed clonazepam to be taken at bedtime. She is also on gabapentin, which is being tapered under guidance, currently taking 200 mg in the morning and 200 mg in the evening. The patient reports tinnitus and occasional lightheadedness, which she suspects might be related to her inner ear issues. She has not yet consulted an ENT specialist but is considering it if symptoms persist. A heart murmur has been noted, which the patient feels has become more pronounced with age. She has a family history of heart disease, with relatives experiencing heart attacks in their 40s. An echocardiogram is scheduled to further evaluate her cardiac status. She is being followed by Dr. Sunshine at [facility]. Social History - Employment: The patient works and take s precautions to avoid illness by wearing a mask. - Family Status: The patient has childre n who are attending school soon. [facility] Medical History (Updated 05/03/25 @ 12:21 by Dayan Lopez PA-C) Lightheadedness Heart murmur Tinnitus Cervical cancer screening (~07/17/24) History of mammogram (~08/16/24) Colon cancer screening Preventative health care Anemia Srfgh-Wjtxlovhe-Anken syndrome Establishing care with new doctor, encounter for Anxiety Restless leg syndrome Lumbar radicular syndrome Hx of supraventricular tachycardia ADD (attention deficit disorder) Surgical History Hx of section Hx of breast augmentation History of lumbosacral spine surgery History of cardiac radiofrequency ablation (RFA) Family History Maternal Aunt Mental health disorder Family/Other Mental health disorder Paternal Grandfather Goiter Paternal Aunt Breast cancer Father Non-Hodgkin lymphoma Hodgkin lymphoma Mother Breast cancer Sister Cervical cancer Social History Housing: Apartment Alcohol intake: current Alcohol intake frequency: holidays/special occasions only Patient Tobacco Use Status: Current everyday Tobacco user Cigarettes Per Day: 4 service: No Current occupational status: employed Cognitive needs: No Hearing needs: No Vision needs: Yes (rx glasses) Female Reproductive History Menstrual 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: 17 Questionnaire PHQ-9 Over the last 2 weeks, how often have you been bothered by any of the following problems? 1. Little interest or pleasure in doing things: not at all 2. Feeling down, depressed, or hopeless: not at all 3. Trouble falling or staying asleep, or sleeping too much: not at all 4. Feeling tired or having little energy: not at all 5. Poor appetite or overeating: not at all 6. Feeling bad about yourself - or that you are a failure or have let yourself or your family down: not at all 7. Trouble concentrating on things, such as reading the newspaper or watching television: not at all 8. Moving or speaking so slowly that other people could have noticed. Or the opposite - being so fidgety or restless that you have been moving around a lot more than usual: not at all 9. Thoughts that you would be better off or of hurting yourself in some way: not at all Total score: 0 Depression Screening Interpretation: Negative Depression Screening Done: Yes 58768 - PHQ-9 Billing: Yes Source: Developed by Drs. Matthew Moreno, Justine Izquierdo, Meng Martin and colleagues, with an educational arianna from [employer]. Thrive Questionnaire Date Thrive assessed: 04/05/25 I am a: Patient What is your living situation today?: I have a steady place to live Within the past 12 months, did the food you bought not last and you didn't have the money to get more?: Never true Within the past 12 months, did you worry whether your food would run out before you got money to buy more?: Never true Do you have trouble paying for medicines?: No Do you have trouble getting transportation to medical appointments?: No Do you have trouble paying your heating and electricity bill?: No Do you have trouble taking care of your child, family member or friend?: No Do you have trouble with day-to-day activities such as bathing, preparing meals, shopping, managing finances, etc.?: No Are you currently unemployed and looking for a job?: No Are you interested in more education?: No Please select the resources that you would like help with: None Currently or been in a relationship where the following occur: No concerns reported THRIVE Score: 0 AUDIT C Alcohol Use Questionnaire (AUDIT-C) 1. How often do you have a drink containing alcohol?: Monthly or less 2. How many drinks containing alcohol do you have on a typical day when you are drinking?: 1 or 2 3. How often do you have six or more drinks on one occasion?: Never Total Score: 1 Score Reviewed/Action Taken: No ANIL-7 AMB Questionnaire ANIL-7 Date ANIL - 7 assessed: 04/05/25 Feeling nervous, anxious, or on edge: 0 = Not at all Not being able to stop or control worryin = Not at all Worrying too much about different things: 0 = Not at all Trouble relaxin = Not at all Being so restless that it is hard to sit still: 0 = Not at all Becoming easily annoyed or irritable: 0 = Not at all Feeling afraid as if something awful might happen: 0 = Not at all Total ANIL-7 score (0-4 normal; 5-9 mild; 10-14 moderate; 15-21 severe): 0 Source: Developed by Drs. Matthew Moreno, Justine Izquierdo, Meng Martin and colleagues, with an educational arianna from [employer]. ANIL-7 Assessment Billing ANIL-7 Assessment Tool: ANIL-7 Assessment 54484 Review of Systems Const Details: - Cardiovascular: Reports lightheadedness. Denies palpitations or chest pain. - Neurological: Reports tinnitus. Denies headaches or dizziness. All systems reviewed & are unremarkable except as noted in HPI and below Physical exam (Primary Care) Vital Signs: Last Vital Signs Temp 97.6 F 05/03/25 09:28 Pulse 58 05/03/25 09:28 Resp 16 05/03/25 09:28 BP 116/68 05/03/25 09:28 Pulse Ox 100 05/03/25 09:28 Oxygen Delivery Method Room Air 05/03/25 09:28 Care Plan Goal for BP management: <140/90 at Goal BMI result Body Mass Index 20.4 Normal BMI Tobacco/Smoking Status: Tobacco use Status Tobacco use date assessed 04/05/25 05/03/25 09:31 Patient Tobacco Use Status Current everyday Tobacco 05/03/25 09:31 PHQ-9: PHQ-9 Score PHQ-9: Total score 0 05/03/25 09:34 Depression Screening Interpretation: Negative Thrive Assessment: Date of Thrive Assessment Date Thrive assessed 04/05/25 05/03/25 09:31 Currently or been in a relationship where the following occur: No concerns reported Const Other: Appearance: Alert. Oriented X3. No acute distress. Head: Normal external exam. Normocephalic. Atraumatic. Eyes: Pupils are equal, round, and reactive to light. Extraocular movements intact. Conjunctiva and sclera normal. Eyelids normal. Throat: Pharynx normal. Uvula midline. Moist mucous membranes. Neck: Normal inspection. Neck supple. Full range of motion. Cardiovascular: Normal heart rate and rhythm. Heart sound normal. No murmurs noted. Pulses normal throughout. Respiratory: No respiratory distress. Painless inspiration. Breath sounds normal. No wheezes/rales/rhonchi noted. Chest nontender. No accessory muscle usage noted or decreased air movement noted. Back: Full range of motion noted. Skin: Skin warm and dry. Normal skin color. Extremities: Extremities exhibit normal range of motion. Neuro: Oriented X 3. No motor deficit. No sensory deficit. Reflexes normal. Results Reviewed Results Reviewed: - Tests and Diagnostics: Echocardiogram scheduled for further evaluation of heart murmur. - Tests and Diagnostics: Mammogram scheduled for August. Coding Level of Care Code Est Pt Level 4 (07329) Complex EM visit Add On G2211 Diagnoses Anxiety F41.9 Tinnitus H93.19 Heart murmur R01.1 Lightheadedness R42 Additional Codes ANIL-7 Assessment Billing - ANIL-7 Assessment Tool: ANIL-7 Assessment 24132 ([id number]) PHQ-9 - 87861 - PHQ-9 Billing: Yes ([id number]) Assessment & Plan Assessment & Plan (1) Anxiety: Code(s): F41.9 - Anxiety disorder, unspecified Category: Medical Plan: The patient is currently on clonazepam for anxiety management, taken at bedtime. The plan includes continuing the current medication regimen and monitoring symptoms. (2) Tinnitus: Code(s): H93.19 - Tinnitus, unspecified ear Category: Medical Plan: The patient reports tinnitus and is considering an ENT consultation if symptoms persist. (3) Heart murmur: Code(s): R01.1 - Cardiac murmur, unspecified Category: Medical Plan: A heart murmur has been noted, and an echocardiogram is scheduled for further evaluation. The patient is advised to monitor for any new symptoms such as chest pain or significant dizziness and seek immediate care if they occur. (4) Lightheadedness: Code(s): R42 - Dizziness and giddiness Category: Medical Plan: The patient experiences occasional lightheadedness, which may be related to her cardiac condition. Further evaluation with an echocardiogram is planned to assess any underlying causes. Plan Plan Patient was informed and verbally consented to the use of an ambient scribe for clinic note documentation during this visit. 1. Anxiety The patient is currently on clonazepam for anxiety management, taken at bedtime. The plan includes continuing the current medication regimen and monitoring symptoms. 2. Tinnitus The patient reports tinnitus and is considering an ENT consultation if symptoms persist. 3. Heart Murmur A heart murmur has been noted, and an echocardiogram is scheduled for further evaluation. The patient is advised to monitor for any new symptoms such as chest pain or significant dizziness and seek immediate care if they occur. 4. Lightheadedness The patient experiences occasional lightheadedness, which may be related to her cardiac condition. Further evaluation with an echocardiogram is planned to assess any underlying causes. During the visit, we discussed the management of anxiety with clonazepam and the tapering of gabapentin. We also reviewed the patient's heart murmur and the importance of the upcoming echocardiogram to assess her cardiac status. The patient was advised to monitor for any new symptoms and to seek immediate care if necessary. Orders: Orders US carotid duplex BI Today I77.9 - Disorder of arteries and arterioles, unspecified Medications: Changed From dextroamphetamine-amphetamine 30 mg 1 tab PO BID To dextroamphetamine-amphetamine 30 mg 1 tab PO DAILY 30 tabs 0RF Patient Instructions: - Continue taking clonazepam as prescribed for anxiety management. - Monitor for any new symptoms such as chest pain or significant dizziness and seek immediate care if they occur. - Attend the scheduled echocardiogram and mammogram appointments. - Consider consulting an ENT specialist if tinnitus persists.
[2025-05-03 09:28] VITALS: BP 116/68; PULSE 58; RESP 16; TEMP 36.4; O2SAT 100; BMI 20.4
--- OUTSIDE RECORDS SUMMARY | 2025-05-03 10:37 | XMS_ITS | Encounter Summary ---
Author Organization [facility] Address [address] [place] [address] Phone Care Team Providers Care General Assembler Name Role Phone Citlalli Lee MD Primary Care Provider Sumeet Servin MD Primary Care Provider +1- [phone] Doug Cruz MD Primary Care Provid er Encounter Details Date Type Department Care Team (Late st Contact Info) Description 11/05/2021 Procedure Pass Echo Lab [address] [place] [address] Social History Tobacco Use Types Packs/Day Years [...] Encounters Date Type Department Care Team (Late Contact Info) Description 04/09/2025 Procedure Pass Echo Lab [address] [place] [address] 06/07/2025 11:15 AM EDT Appointment [facility] [place] [address] [place] [address] Leonard Sunshine, DO [address] [place] [address] 07/11/2025 9:00 AM EDT Office Visit [facility] [address], [address] [place] [address] Leonard Sunshine DO [address] [place] [address] jose documented as of this encounter Visit Diagnoses Not on filedocumented in this encounter Care Teams General Assembler Relationship Specialty Start Date End Date Citlalli Lee MD [address] [place] [address] PCP - General Internal Medicine 11/03/21 01/03/23 Sumeet Servin MD [address] [place] [address] PCP - General Internal Medicine 01/04/23 04/08/25 Doug Cruz MD [address] [place] [address] [address] PCP - General Internal Medicine 04/09/25 documented as of this encounter Additional Source Comments The information contained in this document represents components of the legal health record. It is not the complete legal health record.[facility]
== END 2025-05-03 10:28 | disposition home or self-care (01) ==
LOC: HO.HMCSH 09:28
PROVIDERS: PCP Internal Medicine; Visit Provider Physician Assistant Medical
DX: F41.9 Anxiety disorder, unspecified (principal); H93.19 Tinnitus, unspecified ear; R01.1 Cardiac murmur, unspecified; R42 Dizziness and giddiness

== ENCOUNTER → 2025-05-03 09:27 | Outpatient (BNVA) | payer OTHER, SELFPAY | PROVIDERS: PCP Internal Medicine; Visit Provider Physician Assistant Medical | DX: R42 Dizziness and giddiness (principal); F41.9 Anxiety disorder, unspecified; R01.1 Cardiac murmur, unspecified; Z79.899 Other long term (current) drug therapy; H93.19 Tinnitus, unspecified ear | CPT/HCPCS: 96127; 99212 ==

== ENCOUNTER 2025-06-18 14:28 | Outpatient (REF) | payer OTHER, SELFPAY ==
--- NOTE | ~2025-06-18 | US_ITS ---
EXAMINATION: US EXTRACRANIAL CAROTID DUPLEX, BILATERAL CLINICAL INFORMATION: I77.9 - Disorder of arteries and arterioles, unspecified, coronary artery disease COMPARISON: None available. TECHNIQUE: Real-time ultrasound and Doppler techniques (integrating B-mode 2-D vascular images, Doppler spectral analysis and color-flow Doppler imaging) were utilized to interrogate the extracranial carotid arteries, the vertebral arteries and proximal subclavian arteries bilaterally. The degree of stenosis is determined by criteria similar to NASCET. FINDINGS: Right Side: 1. There is no atherosclerotic plaque seen in the bifurcation/proximal ICA region. 2. The common carotid artery PSV proximally is 156 cm/s and distally 113 cm/s. 3. The proximal internal carotid artery velocities are 123 cm/s systolic and 39 cm/s diastolic. 4. The proximal external carotid artery PSV is 136 cm/s. 5. The vertebral artery shows antegrade flow. 6. The subclavian artery waveforms are triphasic. ICA/CCA ratio = 0.8 Left Side: 1. There is no atherosclerotic plaque seen in the bifurcation/proximal ICA region. 2. The common carotid artery PSV proximally is 173 cm/s and distally 127 cm/s. 3. The proximal internal carotid artery velocities are 142 cm/s systolic and 34 cm/s diastolic. 4. The proximal external carotid artery PSV is 122 cm/s. 5. The vertebral artery shows antegrade flow. 6. The subclavian artery waveforms are triphasic. ICA/CCA ratio 0.8 US/US carotid duplex BI IMPRESSION: 1. RIGHT: No hemodynamically significant stenosis 2. LEFT: No hemodynamically significant stenosis Electronically signed by: Sarabjit Frank MD 06/18/2025 03:10 PM EDT
--- OUTSIDE RECORDS SUMMARY | 2025-06-18 16:54 | XMS_ITS | Encounter Summary ---
Author Organization [facility] Address [address] [place] [address] Phone Care Team Providers Care Coach Operator Name Role Phone Citlalli Lee MD Primary Care Provider Sumeet Servin MD Primary Care Provider +1- [phone] Doug Cruz MD Primary Care Provid er Encounter Details Date Type Department Care Team (Late st Contact Info) Description 11/05/2021 Procedure Pass Echo Lab [place] [place] [id number] Social History Tobacco Use Types Packs/Day Years [...] on filedocumented in this encounter Care Teams Coach Operator Relationship Specialty Start Date End Date Citlalli Lee MD [facility] [place] [address] PCP - General Internal Medicine 11/03/21 01/03/23 Sumeet Servin MD [address] [place] [address] PCP - General Internal Medicine 01/04/23 04/08/25 Doug Cruz MD [address] [place] [address] PCP - General Internal Medicine 04/09/25 documented as of this encounter Additional Source Comments The information contained in this document represents components of the legal health record. It is not the complete legal health record.[facility]
--- OUTSIDE RECORDS SUMMARY | 2025-06-18 16:54 | XMS_ITS | Clinical Summary ---
Author Organization [facility] Address [address] [place] [address] Phone Care Team Providers Care Traffic Inspector Name Role Phone Doug Cruz MD Primary Care Provid er Allergies Active Allergy Reactions Criticality Noted Date Comments Diphenhydramine 04/16/2016 Restless legs Latex 03/18/2016 Latex sensitivity Medications GABAPENTIN ORAL Take 600 mg by mouth. 300 in am, 300 in pm Active dextroamphetami ne/amphetamine (ADDERALL ORAL) Take 30 mg by mouth daily. Active metoprolol succinate (TOPROL-XL) 25 MG 24 hr tablet Take 1 tablet (25 mg total) by mouth daily. 90 tablet 3 2 Active bimatoprost (LATISSE) 0.03 % ophthalmic solution APPLY TO THE EYELIDS ONCE NIGHTLY 3 Active clonazePAM (KLONOPIN) 1 MG tablet 3 Active metroNIDAZOLE (METROCREAM) 0.75 % cream Apply topically. 3 Active tretinoin (RETIN-A) 0.025 % cream PLEASE SEE ATTACHED FOR DETAILED DIRECTIONS 3 Active Active Problems Problem Noted Date Diagnosed Date Cardiac murmur, unspecified 04/09/2025 Benign essential hypertension 04/09/2025 Assessment & Plan (04/09/2025 9:47 AM EDT): Well-controlled to the guidelines but she is getting some dizzy spells I asked her to check her pressure when these dizzy spells happen in addition we will put on a monitor for a week Palpitations 01/12/2022 Assessment & Plan (04/09/2025 9:47 AM EDT): As mentioned we will check a 7-day MCT monitor Assessment & Plan (02/19/2023 9:23 AM EDT): She rarely has palpitations at this point Assessment & Plan (01/12/2022 2:13 PM EDT): She recently had a 2-week loop monitor which showed no significant arrhythmia Paroxysmal supraventricular tachycardia 01/13/20 Assessment & Plan (04/09/2025 9:47 AM EDT): Her symptoms do not sound like this has come back but more like PVCs Assessment & Plan (02/19/2023 9:23 AM EDT): 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 Assessment & Plan (03/13/2022 4:03 PM EDT): Well controlled on 50 mg of metoprolol. She has no side effects with this medication and would like to continue it manager long term care. She is not interested in pursuing other therapies (such as ablation or different medications) at this time. Assessment & Plan (01/12/2022 2:12 PM EDT): This patient probably had an accessory bypass tract 5 years ago ablated I can still see some preexcitation on some of the complexes on her ECG. We are ordering an exercise tolerance test off metoprolol I will see her back in follow-up thereafter. Encounters Date Type Department Care Team Description 06/07/2025 11:10 AM EDT - 06/07/2025 11:59 PM EDT Hospital Encounter Echo Lab [place] [address] [place] [address] Leonard Sunshine, DO Discharge Disposition: Home or Self Care 05/11/2025 Orders Only [facility] [address], [address] [place] [address] Leonard Sunshine DO 04/09/2025 10:00 AM EDT Office Visit [facility] [address], [address] [place] [address] Leonard Sunshine, Benign essential hypertension (Primary Dx); Cardiac murmur, unspecified; Palpitations; Paroxysmal supraventricular tachycardia 04/09/2025 Procedure Pass Echo Lab [address] [place] [address] from Last 3 Months Social History Tobacco Use Types Packs/Day Years Used Date Smoking Tobacco: Light Smoker Smokeless Tobacco: Never Tobacco Cessation:Ready to Q uit: Not Asked; Counseling Given: Not Answered Alcohol Use Standard Drinks/Week Comments Yes 0 (1 standard drink = 0.6 oz pur e alcohol) Education Answer Date Recorded Are you interested in more education? Not on pritesh e 01/09/2023 Are you concerned about learning? Not on file 01/09/2023 No 01/09/2023 No 01/09/2023 Digital Access Answer Date Recorded No 02/09/2023 No 02/09/2023 Reliable internet access at home? Not on file 02/09/2023 Device with a working camera? Not on file Comments Unknown Sex and Gender Information Value Date Recorded Sex Assigned at Not on file Legal Sex Female 12:10 PM EST Gender Identity Not on file Sexual Orientation Not on file Last Filed Vital Signs Vital Sign Reading Time Taken Comments Blood Pressure 130/76 04/09/2025 9:26 AM EDT Pulse 63 04/09/2025 9:26 AM EDT Temperature 36.6 C (97.9 F) 11/03/2021 12:21 PM EST Respiratory Rate 24 11/03/2021 2:00 PM EST Oxygen Saturation 99% 04/09/2025 9:26 AM EDT Inhaled Oxygen Concentration - - Weight 59 kg (130 lb) 04/09/2025 9:26 AM EDT Height 167.6 cm (5' 5.98 ) 04/09/2025 9:26 AM ED T Body Mass Index 20.99 04/09/2025 9:26 AM EDT Plan of Treatment Health Maintenance Due Date Last Done Comments DEPRESSION SCREENING 1992 SMOKING Hx and SMOKELESS TOBACCO SCREENING 1993 HIV ONE-TIME SCREENING (18-6 5 YEARS) 1998 PNEUMOCOCCAL VACCINES (0-49 years) (1 of 2 - PCV) 11/19/1999 PAP SMEAR 2001 MAMMOGRAM 2020 INFLUENZA VACCINE (#1) 2025 7, 06/10/2015 COVID-19 VACCINE (1 - 2024-2 6 season) 2025 BLOOD PRESSURE 10/10/2025 04/09/2025 Adult Td,Tdap Booster 08/28/2029 08/28/2019 HEPATITIS C SCREENING Completed 04/12/2019 HEPATITIS A VACCINES Aged Out No long er eligible based on patient's age to complete this topic HIB VACCINES Aged Out No longer eligi ble based on patient's age to complete this topic MENINGOCOCCAL VACCINES (ACWY) Aged Out No longer eligible based on patient's age to complete this topic MENINGOCOCCAL VACCINES (B) Aged Out N o longer eligible based on patient's age to complete this topic Medical Devices Not on file Procedures Procedure Name Priority Date/Time Associated Diagnosis Comments TTE COMPREHENSIVE Routine 06/07/2025 12: 16 PM EDT Cardiac murmur, unspecified Palpitations OUTSIDE MONITOR Routine 05/11/2025 11:02 AM EDT from Last 3 Months Results * TTE COMPREHENSIVE (06/07/2025 12:16 PM EDT) Height 168 cm Weight 59 kg Systolic BP 130 mmHg Diastolic BP 76 mmHg Interventricular Septum Thickness 6 6 - 11 mm Left Ventricle Internal Diameter End Diastole 49 37 - 52 mm Left Ventricle Internal Diameter End Systole 36 <35 mm Left Ventricular Outflow Tract Diameter 22.0 mm Left Ventricular Posterior Wall Thickness 5 6 - 11 mm Left Ventricle Ea Lateral Wave Speed 21.4 cm/s Left Ventricle Ea Septal Wave Speed 12.1 cm/s Ejection Fraction 56 50 - 75 Percent Left Atrium Dimension Anterior-Posterior 31 15 - 40 mm Aortic Valve Mean Gradient 4 mmHg Aortic Valve Time Velocity Integral 284.0 mm Aortic Valve Peak Velocity 1.4 m/s Aortic Valve Peak Gradient 8 mmHg Aortic Arch Diameter 21 mm Aortic Sinus Diameter 30 <40 mm Inferior Vena Cava Diameter 23 <21 mm Mitral Valve Deceleration Time 187 ms Left Ventricle A Wave Speed 62.9 cm/s Left Ventricle E Wave Speed 72.7 cm/s Tricuspid Valve Peak Velocity 2.6 m/s Raw LV EF% 46 % MV E/E' Tissue Velocity Lateral 3.40 Relative Wall Thickness 0.20 0.22 - 0.42 MV E/A ratio 1.2 MV E/e' septal 6.01 Left Ventricle E/e' Average 4.7 Aortic Valve Prosthetic Peak Gradient 8 mmHg Aorta Sinus Index by Height 1.79 cm/m Aorta Sinus CSA index by Height 4.21 cm2/m Right Ventricle to Right Atrium Pressure Gradient 27 mmHg Right Ventricle Peak Systolic Pressure (Assuming RAP 10) 37 mmHg MGB CV ECHO TV RVSP (ASSUMING RAP OF 5) 32 mmHg RVSP (Exclusive of RAP) 27 mmHg Echo E/Ea 6.01 Body Surface Area 1.67 m2 Left Ventricle indexed to BSA 49.4 g/m2 Aortic Valve Sinus Index by BSA 18 mm/m2 Aortic Sinus Index 18 mm Aortic Valve Sinus Index 1 18 19 - 27 mm Left Atrial Volume Index 38 16 - 34 mL/m2 Right Ventricle Peak Systolic Pressure 30 mmHg Right Ventricle TAPSE 25 >=17 mm Right Ventricle Pulse Doppler S Wave 16.9 >=9.5 cm/s Right Ventricle Basal Diameter 35 25 - 41 mm Left Atrial Volume 64 mL Left Atrial Volume Index by Height 38 mL/m Right Atrium Area 14 cm2 Right Atrium Area index 8 cm2/m2 Aortic Valve Prosthetic Mean Gradient 4 mmHg Right Atrium Pressure Estimated 3 mmHg Anatomical Region Laterality Modality Heart Ultrasound Narrative 06/08/2025 8:54 AM EDT Images from the original result were not included. Normal LV size and function EF 55 to 60%. Normal PA pressure estimation. Trace mitral regurgitation. Borderline left atrial enlargement. Normal RV size and function. Normal diastolic function. No pathologic cause for murmur was found on this study. Left Ventricle The left ventricle is normal in size. There is normal wall thickness. There is normal left ventricular systolic function. The LV ejection fraction is 56% (calculated via biplane measurement). There are no wall motion abnormalities. LV diastolic function appears within normal limits for age. The E/A ratio is 1.2. The e' septal wave velocity is 12.1 cm/s. The e' lateral wave velocity is 21.4 cm/s. The average E/e' ratio is 4.7. Right Ventricle The right ventricle is normal in size. The RV basal dimension is 35 mm. There is normal right ventricular systolic function. TAPSE is 25 mm. RV S' wave is 16.9 cm/s. Left Atrium The left atrium is mildly dilated. The left atrial volume is 64 mL. The left atrial volume index by BSA is 38 mL/m2. There are normal flow patterns in the pulmonary vein. Right Atrium The right atrium is normal in size. The right atrial area is 14 cm2. The IVC is dilated with normal inspiratory collapse. This is consistent with normal RA pressure. The IVC diameter is 23 mm (normal: <= 21 mm). Hepatic veins are normal in size. Mitral Valve There is mitral valve thickening. There is no mitral stenosis. There is trace to mild mitral regurgitation. Tricuspid Valve The tricuspid valve appears normal. There is no tricuspid stenosis. There is mild tricuspid regurgitation. The RV systolic pressure was calculated at 30 mmHg (using TR peak velocity of 2.6 m/s and assuming an RA pressure of 3 mmHg). Aortic Valve The aortic valve is tricuspid. There is trace aortic regurgitation. Pulmonic Valve The pulmonic valve appears normal. Pericardium There is no pericardial effusion. There are no pleural effusions. General Findings The image quality was good (2). Technique(s) used in the evaluation: Color flow Doppler and Spectral Doppler. The predominant rhythm during the study was sinus. Comparison Findings There are no prior studies for comparison. IAS/IVS The interatrial septum appears normal. There is no evidence of patent foramen ovale (PFO). The interventricular septum appears normal. There is no evidence of a ventricular septal defect. us Leonard Sunshine DO CV ECHO ORDERABLES Final Resu lt * Outside Monitor Report Only (05/11/2025 11:02 AM EDT) us Leonard Sunshine DO CV CARDIAC SERVICES ORDERABLE S Final Result from Last 3 Months Insurance [address], [place] [address] [employer] NON [employer] PCP [employer] NON [employer] PCP [employer] [address], [place] [address] [employer] NON [employer] PCP S[employer] NON [employer] PCP [employer] [address], [place] [address] [employer] NON NSPG PCP [facility] NON NSPG PCP [employer] [facility] [place] [address] Care Teams Traffic Inspector Relationship Specialty Start Date End Date Doug Cruz MD [address] [place] [address] [id number] PCP - General Internal Medicine 04/09/25 Additional Source Comments The information contained in this document represents components of the legal health record. It is not the complete legal health record.[facility]
--- OUTSIDE RECORDS SUMMARY | 2025-06-18 16:54 | XMS_ITS | Encounter Summary ---
Author Organization [facility] Address [address] [place] [address] Phone Care Team Providers Care House Worker Name Role Phone Doug Cruz MD Primary Care Provid er Encounter Details Date Type Department Care Team (Late st Contact Info) Description 04/09/2025 Procedure Pass Echo Lab [address] [place] [address] Social History Tobacco Use Types Packs/Day Years Used Date Smoking Tobacco: Light Smoker Smokeless Tobacco: Never Alcohol Use Standard Drinks/Week Comments Yes 0 [...] on filedocumented in this encounter Care Teams House Worker Relationship Specialty Start Date End Date Doug Cruz MD [address] [place] [address] PCP - General Internal Medicine 04/09/25 documented as of this encounter Additional Source Comments The information contained in this document represents components of the legal health record. It is not the complete legal health record.[facility]
== END 2025-06-18 14:29 | disposition home or self-care (01) ==
LOC: HO.HMGCX 14:28
PROVIDERS: PCP Internal Medicine; Visit Provider Physician Assistant Medical
DX: I77.9 Disorder of arteries and arterioles, unspecified (principal)
CPT/HCPCS: 93880

== ENCOUNTER → 2025-06-18 14:31 | Outpatient (BNV) | payer OTHER, SELFPAY | PROVIDERS: PCP Internal Medicine; Visit Provider Radiology Diagnostic Radiology | DX: I77.9 Disorder of arteries and arterioles, unspecified (principal) | CPT/HCPCS: 93880 ==

== ENCOUNTER 2025-06-28 09:05 | Outpatient (AMB) | payer OTHER, SELFPAY ==
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
--- OUTSIDE RECORDS SUMMARY | 2025-06-28 10:08 | XMS_ITS | Encounter Summary ---
Author Organization [facility] Address [address] [place] [phone] Phone Care Team Providers Care Thin Film Technician Name Role Phone Citlalli Lee MD Primary Care Provider Sumeet Servin MD Primary Care Provider [phone] Doug Cruz MD Primary Care Provid er Encounter Details Date Type Department Care Team (Late st Contact Info) Description 11/05/2021 Procedure Pass Echo Lab [address] [place] [id number] Social History Tobacco Use Types Packs/Day Years [...] on filedocumented in this encounter Care Teams Thin Film Technician Relationship Specialty Start Date End Date Citlalli Lee MD [facility] [place] [address] PCP - General Internal Medicine 11/03/21 01/03/23 Sumeet Servin MD [address] [place] [id number] PCP - General Internal Medicine 01/04/23 04/08/25 Doug Cruz MD [address] [place] [id number] PCP - General Internal Medicine 04/09/25 documented as of this encounter Additional Source Comments The information contained in this document represents components of the legal health record. It is not the complete legal health record.[facility]
--- OUTSIDE RECORDS SUMMARY | 2025-06-28 10:08 | XMS_ITS | Encounter Summary ---
Author Organization [facility] Address [address] [place] [address] Phone Care Team Providers Care Pathologist Name Role Phone Doug Cruz MD Primary Care Provid er Encounter Details Date Type Department Care Team (Late st Contact Info) Description 04/09/2025 Procedure Pass Echo Lab [address] [place] [address] Social History Tobacco Use Types [...] on filedocumented in this encounter Care Teams Pathologist Relationship Specialty Start Date End Date Doug Cruz MD [address] [place] [address] PCP - General Internal Medicine 04/09/25 documented as of this encounter Additional Source Comments The information contained in this document represents components of the legal health record. It is not the complete legal health record.[facility]
--- OUTSIDE RECORDS SUMMARY | 2025-06-28 10:08 | XMS_ITS | Clinical Summary ---
Author Organization [facility] Address [address] [place] [phone] Phone Care Team Providers Care Gi Tech Name Role Phone Doug Cruz MD Primary [...] medication and would like to continue it chcf. She is not interested in pursuing other [...] 11:59 PM EDT Hospital Encounter [facility] [place] [address] [place] [address] Leonard Sunshine, DO Discharge Disposition: Home or Self Care 05/11/2025 Orders Only [facility] [address], [address] [place] [address] Leonard Sunshine DO 04/09/2025 10:00 AM EDT Office Visit [facility] [address], [address] [place] [address] Leonard Sunshine, Benign essential hypertension (Primary Dx); Cardiac murmur, unspecified; Palpitations; Paroxysmal supraventricular tachycardia 04/09/2025 Procedure [facility] [address] [place] [address] from Last 3 Months Social History Tobacco [...] Final Result from Last 3 Months Insurance [address] [address] [employer] NON [facility] [employer] [employer] NON [employer] [facility] [address] [address] [employer] NON [employer] [facility] S[employer] NON [employer] [facility] [address] [address] [employer] NON [facility] PCP S[facility] [employer] [facility] NON [facility] PCP [facility] [address] Care Teams Gi Tech Relationship Specialty Start Date End Date Doug Cruz MD [address] [place] [address] [phone] PCP - General Internal Medicine 04/09/25 Additional Source Comments The information contained in this document represents components of the legal health record. It is not the complete legal health record.[facility]
== END 2025-06-28 09:38 | disposition home or self-care (01) ==
PROVIDERS: PCP Internal Medicine; Visit Provider Clinical Nurse Specialist Psychiatric/Mental Health
DX: F90.2 Attention-deficit hyperactivity disorder, combined type (principal); F41.1 Generalized anxiety disorder
CPT/HCPCS: 99214

== ENCOUNTER → 2025-06-28 09:05 | Outpatient (BNVA) | payer OTHER, SELFPAY | PROVIDERS: PCP Internal Medicine; Visit Provider Clinical Nurse Specialist Psychiatric/Mental Health | DX: F90.2 Attention-deficit hyperactivity disorder, combined type (principal); F41.1 Generalized anxiety disorder; G25.81 Restless legs syndrome | CPT/HCPCS: 99212 ==

== ENCOUNTER 2025-08-20 10:29 | Outpatient (AMB) | payer OTHER, SELFPAY ==
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
== END 2025-08-20 11:00 | disposition home or self-care (01) ==
LOC: HO.HOP 10:29
PROVIDERS: PCP Internal Medicine; Visit Provider Clinical Nurse Specialist Psychiatric/Mental Health
DX: F90.2 Attention-deficit hyperactivity disorder, combined type (principal); F41.1 Generalized anxiety disorder
CPT/HCPCS: 99214

== ENCOUNTER → 2025-08-20 10:29 | Outpatient (BNVA) | payer OTHER, SELFPAY | PROVIDERS: PCP Internal Medicine; Visit Provider Clinical Nurse Specialist Psychiatric/Mental Health | DX: F90.2 Attention-deficit hyperactivity disorder, combined type (principal); F41.1 Generalized anxiety disorder; Z79.899 Other long term (current) drug therapy | CPT/HCPCS: 99212 ==